=== PATIENT | male | born 1945 | race Caucasian/White ===

== ENCOUNTER → 2017-10-18 09:32 | Outpatient (CLI) | payer OTHER, SELFPAY | PROVIDERS: Family Provider Physician Assistant; PCP Physician Assistant; Visit Provider Internal Medicine | DX: M85.851 Other specified disorders of bone density and structure, right thigh (principal); Z79.52 Long term (current) use of systemic steroids | CPT/HCPCS: 77080 ==

== ENCOUNTER → 2018-03-28 11:39 | Outpatient (CLI) | payer OTHER, SELFPAY ==
[2018-03-28 13:17] LABS: BUN Creatinine Ratio 18.8 (6-22); Blood Urea Nitrogen 15 mg/dL (9-20); Estimated Glomerular Filt Rate > 60.0 mL/min (>60)
== END ==
PROVIDERS: Visit Provider Internal Medicine
DX: I26.99 Other pulmonary embolism without acute cor pulmonale (principal)
CPT/HCPCS: 36415; 82565; 84520

== ENCOUNTER → 2018-04-02 10:05 | Outpatient (CLI) | payer OTHER, SELFPAY ==
--- NOTE | 2018-04-02 | DI.CT.S_ITS ---
PROCEDURE: CT ANGIO CHEST PE PROTOCOL INDICATIONS: Other pulmonary embolism chest pains TECHNIQUE: After the administration of intravenous contrast, 2 mm thick sections acquired from the pulmonary apices to the posterior costophrenic angles. 3-dimensional maximum intensity projection (MIP) coronal and sagittal reformats were then acquired through the thorax. For radiation dose reduction, the following was used: automated exposure control, adjustment of mA and/or kV according to patient size. COMPARISON: [facility], CT, PE STUDY (CTA CHEST), 06/29/2017, 16:32. FINDINGS: Image quality: Excellent. Pulmonary arteries: Pulmonary arteries are normal in size, and demonstrate no intraluminal filling defects to suggest central pulmonary embolism. Lungs and pleura: Lungs are clear but appear mildly hyperexpanded. No pleural effusions or pneumothorax. Central and peripheral airways are patent. Mediastinum: Heart size is normal, without pericardial effusion. No mediastinal or hilar adenopathy. Thoracic aorta is normal in caliber and enhancement. Esophagus is normal in caliber, without hiatal hernia. Bones and chest wall: No suspicious bony lesions. Ribs and thoracic spine appear intact throughout. Thyroid gland appears normal weren't well visualized. No axillary or supraclavicular adenopathy. Abdomen: Visualized upper abdominal solid organs appear unchanged in the early arterial phase of enhancement, with stable appearance of a mild prominence of the anterior limb of the right adrenal gland as previously described. IMPRESSION: Resolution of previously present bilateral pulmonary emboli. No new abnormality found. Stable appearance of a mild prominence of the anterior limb of the right adrenal gland, stable appearance of pulmonary hyperexpansion potentially representing underlying COPD. Dictated by: Kostas Gil M.D. on 04/02/2018 at 10:50 Approved by: Kostas Gil M.D. on 04/02/2018 at 10:52
== END ==
PROVIDERS: PCP Internal Medicine; Visit Provider Internal Medicine
DX: I26.99 Other pulmonary embolism without acute cor pulmonale (principal); R07.9 Chest pain, unspecified
CPT/HCPCS: 71275; Q9967

== ENCOUNTER 2018-05-05 09:37 | Emergency (ER) | payer OTHER, SELFPAY ==
[2018-05-05 09:44] VITALS: BP 132/63; PULSE 91; RESP 18; TEMP 36.6; O2SAT 94
--- NOTE | 2018-05-05 09:51 | ED_ITS ---
HPI - URI/Sore Throat General Chief Complaint: Upper Respiratory Symptoms Stated Complaint: TROUBLE BREATHING X2 DAYS Time Seen by Provider: 05/05/18 09:44 Source: patient Mode of arrival: ambulatory Limitations: no limitations History of Present Illness HPI Narrative: Patient is a 72-year-old male with history of COPD on 3 different inhalers at home here for evaluation of a cough for the past 3 days. He also states that he feels short of breath. He has had a productive cough. No fevers. He has had a pulmonary embolism in the past. He states this feels different than his pulmonary embolism. He is not currently on anticoagulation. Does not use oxygen at home. Has been doing his inhalers. He states that last year he was diagnosed with ?pneumonia? after being diagnosed with the flu. He states that his shortness of breath feels more like ?bronchitis? and LEs like a COPD exacerbation. Related Data Home Medications Medication Instructions Recorded Confirmed albuterol sulfate [Ventolin HFA] 2 puff INH Q4HP PRN #0 ea 01/26/16 fluticasone-salmeterol [Advair 1 puff INH BID #28 dose 01/26/16 Diskus] lisinopril 20 mg PO QDAY #0 01/26/16 multivitamin [Multiple Vitamins] 1 tab PO QDAY #0 tab 01/26/16 tiotropium bromide [Spiriva with 1 puff INH QDAY #0 ea 01/26/16 HandiHaler] aspirin 81 mg PO QDAY #0 03/18/17 alprazolam 0.25 mg PO Q8HP PRN #0 06/29/17 fluticasone [Flonase Allergy 1 spray INTRANASAL QDAY #0 06/29/17 Relief] hydrochlorothiazide 25 mg PO QDAY #0 06/29/17 prednisone PO #0 06/29/17 sertraline 50 mg PO QDAY #30 06/29/17 Previous Rx's Medication Instructions Recorded Nebulizer: Home Unit u NEB QIDP PRN #1 05/31/17 albuterol sulfate 3 ml INH Q4HP PRN #30 applic 05/31/17 enoxaparin [Lovenox] 60 mg SQ 0600,1800 #5 u 07/02/17 warfarin [Coumadin] 4 mg PO QDAY #60 tab 07/02/17 levofloxacin [Levaquin] 750 mg PO DAILY 5 Days #5 tab 05/05/18 prednisone 60 mg PO DAILY 5 Days #15 tab 05/05/18 Allergies Allergy/AdvReac Type Severity Reaction Status Date / Time No Known Drug Allergies Allergy Verified 05/05/18 09:44 Review of Systems Constitutional Denies fever(s) Cardiovascular Denies chest pain and Reports dyspnea Respiratory Denies change in phlegm color, Reports cough, Reports excessive phlegm production, Reports pain with cough, Reports dyspnea, Denies stridor and Denies wheezing Gastrointestinal Gastrointestinal: Denies abdominal pain, Denies nausea and Denies vomiting Musculoskeletal Denies myalgias and Denies arthralgias Integumentary/Breasts Denies rash Hematologic/Lymphatic Denies easy bleeding and Denies easy bruising Allergic/Immunologic Denies wheezing PFSH Medical History COPD (chronic obstructive pulmonary disease) (Acute) Pulmonary embolism (Acute) Social History Smoking Status: Current every day smoker Exam Initial Vital Signs Initial Vital Signs: Vital Signs Temperature 97.9 F 05/05/18 09:44 Pulse Rate 91 H 05/05/18 09:44 Respiratory Rate 18 05/05/18 09:44 Blood Pressure 132/63 05/05/18 09:44 Pulse Oximetry 94 05/05/18 09:44 Const General: cooperative, comfortable, well developed, well groomed and No acute distress Orientation: alert, awake and oriented x3 HENMT Head: normal to inspection and normocephalic Resp Effort & Inspection: no audible wheezes, no cough, not labored, no retractions, no stridor and tachypneic Auscultation: other (Decreased breath sounds bilateral) Cardio Rate: regular rate Rhythm: regular rhythm Pulses: radial pulses present GI Inspection: non-distended Palpation: soft, No firm and No tender Skin Lesions: no lesions Rashes: no rashes Neuro General: alert, awake and oriented x3 Extrem General: normal to inspection and capillary refill normal Psych Appearance: grossly normal and well kempt Course Orders Ordered: ED Orders 05/05/18 09:51 XR chest 2V Stat 05/05/18 10:05 Influenza A and B by PCR Rapid Stat Vital Signs - 8 hr 05/05/18 09:44 Temperature 97.9 F Pulse Rate 91 H Respiratory Rate 18 Blood Pressure 132/63 Pulse Oximetry 94 MDM - URI/Sore Throat Lab Data Lab Results 05/05/18 Range/Units 10:05 Influenza A & B (PCR) Negative (Negative) Imaging Data Chest x-ray: Radiologist's impression: PROCEDURE: XR CHEST 2V INDICATIONS: COPD with cough TECHNIQUE: 2 views of the chest were acquired. COMPARISON: [facility], CHEST 1 VIEW, 06/29/2017, 12:29. [facility], CHEST 2 VIEW, 06/13/2017, 14:56. FINDINGS: Surgical changes and devices: None. Lungs and pleura: No pleural effusions or pneumothorax. Lungs are abnormal with prominent pulmonary hyperexpansion. 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 Heart size is normal. Bones and chest wall: No suspicious bony abnormalities. Soft tissues appear unremarkable. IMPRESSION: Severe COPD, central pulmonary artery hypertension is suspected based on the prominence of the central pulmonary arteries. No source of cough is found. Dictated by: Kostas Gil M.D. on 05/05/2018 at 10:19 MDM Narrative Medical decision making narrative: Patient is not in respiratory distress. He is not hypoxic. He did not want a nebulizer treatment here in the emergency department. He has had an increase in sputum production and more short of breath over the past couple days. Will consider this a COPD exacerbation. Will send home on antibiotics and steroids. He was given return precautions. He expressed understanding and agreement this plan. Discharge Plan Departure Patient Disposition: Home Clinical Impression: Acute exacerbation of chronic obstructive pulmonary disease (COPD) Instructions: DI for Chronic Obstructive Pulmonary Disease Activity Restrictions/Additional Instructions: Recommend that you take all of the medications as directed. Call your primary care doctor for a follow-up. Return to the emergency department for any new or worsening symptoms Prescriptions: New prednisone 20 mg tablet 60 mg PO DAILY 5 Days Qty: 15 RF: 0 levofloxacin [Levaquin] 750 mg tablet 750 mg PO DAILY 5 Days Qty: 5 RF: 0 No Action albuterol sulfate [Ventolin HFA] 90 MCG/PUFF HFA aerosol inhaler 2 puff INH Q4HP PRNQty: 0 RF: 0 multivitamin [Multiple Vitamins] 1 EACH tablet 1 tab PO QDAY Qty: 0 RF: 0 fluticasone-salmeterol [Advair Diskus] 250 MCG/50 MCG blister with device 1 puff INH BID Qty: 28 RF: 0 lisinopril 20 MG tablet 20 mg PO QDAY Qty: 0 RF: 0 tiotropium bromide [Spiriva with HandiHaler] 18 MCG capsule, w/inhalation device 1 puff INH QDAY Qty: 0 RF: 0 aspirin 81 MG tablet,delayed release (DR/EC) 81 mg PO QDAY Qty: 0 RF: 0 albuterol sulfate 2.5 MG/3 ML solution for nebulization 3 ml INH Q4HP PRNQty: 30 RF: 0 Nebulizer: Home Unit NEB QIDP PRNQty: 1 RF: 0 alprazolam 0.25 MG tablet 0.25 mg PO Q8HP PRNQty: 0 RF: 0 fluticasone [Flonase Allergy Relief] 9.9 ML spray,suspension 1 spray Intranasal QDAY Qty: 0 RF: 0 hydrochlorothiazide 25 MG tablet 25 mg PO QDAY Qty: 0 RF: 0 sertraline 25 MG tablet 50 mg PO QDAY Qty: 30 RF: 0 prednisone 10 MG tablet PO Qty: 0 RF: 0 warfarin [Coumadin] 2 MG tablet 4 mg PO QDAY Qty: 60 RF: 0 enoxaparin [Lovenox] 60 MG/0.6 ML syringe 60 mg SQ 0600,1800 Qty: 5 RF: 0
[2018-05-05 10:15] VITALS: BP 128/55; PULSE 78; RESP 19; O2SAT 94
--- NOTE | 2018-05-05 10:18 | PC.NURSE ---
reports, coughing for 3 days, hurts to cough, denies vomiting, with one time diarrhea today. smoker for years, quiet, restarted smoking 2ppd/along with alcohol.
--- NOTE | 2018-05-05 10:20 | PC.NURSE ---
pt alert and awake, oriented x3, responds appropriately, denies chest pain, shortness of breath, lightheaded. denies using oxygen at home. skin dusky all over.
[2018-05-05 10:30] VITALS: BP 108/57; PULSE 75; RESP 21; O2SAT 96
[2018-05-05 10:33] LABS: Influenza A and B by PCR Rapid Negative (Negative)
[2018-05-05 11:00] VITALS: BP 125/50; PULSE 86; RESP 19; O2SAT 97
== END 2018-05-05 11:27 | disposition home or self-care (01) ==
PROVIDERS: Emergency Provider Emergency Medicine; PCP Internal Medicine
DX: J44.1 Chronic obstructive pulmonary disease with (acute) exacerbation (principal)
CPT/HCPCS: 71046; 87400; 99283; 99284

== ENCOUNTER 2018-05-15 11:39 | Emergency (ER) | payer OTHER, SELFPAY ==
[2018-05-15 11:45] VITALS: BP 142/69; PULSE 74; RESP 16; TEMP 36.7; O2SAT 96; BMI 19.3
[2018-05-15 13:42] VITALS: BP 145/63; PULSE 67; RESP 20; TEMP 36.8; O2SAT 92
== END 2018-05-15 14:31 | disposition left against medical advice (07) ==
PROVIDERS: PCP Internal Medicine
DX: Z76.0 Encounter for issue of repeat prescription (principal)
CPT/HCPCS: 99281

== ENCOUNTER → 2019-02-08 06:59 | Outpatient (CLI) | payer OTHER, SELFPAY ==
--- NOTE | 2019-02-08 | DI.CT.S_ITS ---
PROCEDURE: CT CHEST W CON INDICATIONS: other pulmonary embolism without acute cor pulmona TECHNIQUE: After the administration of intravenous contrast, 5 mm thick sections acquired from the pulmonary apices to the posterior costophrenic angles. 1 mm axial lung, 5 mm thick coronal and sagittal reformats and 7 mm axial MIP were acquired. For radiation dose reduction, the following was used: automated exposure control, adjustment of mA and/or kV according to patient size. COMPARISON: [facility], CT, CT ANGIO CHEST PE PROTOCOL, 04/02/2018, 10:13. [facility], CR, XR CHEST 2V, 05/05/2018, 9:56. FINDINGS: Image quality: Excellent. Lungs and pleura: No acute consolidation. Scattered subsegmental atelectasis and/or scarring. No pleural effusion. No pneumothorax. Unchanged appearance of a 4 mm pulmonary nodules since 04/02/18, for example image 258 series 3 in the right lung base. Bilateral upper lobe predominant centrilobular emphysema Mediastinum: Heart size is normal. Coronary artery calcifications are present. No pericardial effusion. No mediastinal or hilar adenopathy by size criteria. There are eccentric nonobstructive filling defects seen within the right lower lobar and segmental pulmonary arteries which appear more conspicuous since the prior study keeping with chronic pulmonary embolism although suspected subacute on chronic disease. No central filling defects are seen. Esophagus is normal in caliber. No hiatal hernia. Bones and chest wall: No suspicious bony lesions. No vertebral body compression fractures. No axillary or supraclavicular adenopathy by size criteria. Thyroid gland negative. Abdomen: Bilateral renal cortical scarring and cysts which are grossly unchanged IMPRESSION: Redemonstration of chronic pulmonary embolism, however interval increase in the size of the eccentric filling defects suggests persistent/recurrent subacute on chronic disease. No acute consolidation. Upper lobe predominant centrilobular emphysema. Dictated by: Navin Bermudez M.D. on 02/08/2019 at 8:59 Approved by: Navin Bermudez M.D. on 02/08/2019 at 9:08
== END ==
PROVIDERS: PCP Internal Medicine; Visit Provider Internal Medicine
DX: I26.99 Other pulmonary embolism without acute cor pulmonale (principal); J43.2 Centrilobular emphysema
CPT/HCPCS: 71260; Q9967

== ENCOUNTER 2019-03-22 09:22 | Emergency (ER) | payer OTHER, SELFPAY ==
[2019-03-22 09:22] VITALS: BP 176/62; PULSE 74; RESP 18; TEMP 37.9; O2SAT 92
[2019-03-22] MEDS: ALBUTEROL/IPRATROPIUM 3 ML AMPUL INH (09:36)
--- NOTE | 2019-03-22 09:38 | DI.RAD.S_ITS ---
PROCEDURE: XR CHEST 2V INDICATIONS: cough, fever, SOB TECHNIQUE: 2 views of the chest were acquired. COMPARISON: [facility], CT, CT CHEST W CON, 02/08/2019, 8:24. [facility], CR, XR CHEST 2V, 05/05/2018, 9:56. FINDINGS: Surgical changes and devices: None. Lungs and pleura: Hyperinflation consistent with COPD. Trace pleural effusion or pleural thickening bilaterally. There is left basilar infiltrate. No pneumothorax. Mediastinum: Mediastinal contours are normal. Heart size is normal. Enlargement of central pulmonary outflow tract. Bones and chest wall: No suspicious bony abnormalities. Soft tissues appear unremarkable. IMPRESSION: 1. Left basilar infiltrate consistent with pneumonia. 2. Hyperinflation consistent with COPD. 3. Trace pleural effusions or pleural thickening. 4. Enlargement of central pulmonary outflow tract suggesting pulmonary hypertension. Dictated by: Isaac Damian M.D. on 03/22/2019 at 9:49 Approved by: Isaac Damian M.D. on 03/22/2019 at 9:55
[2019-03-22 09:43] VITALS: PULSE 73; RESP 20; O2SAT 95
--- NOTE | 2019-03-22 09:50 | ED_ITS ---
HPI - SOB/Dyspnea General Chief Complaint: Shortness of Breath/Dyspnea Stated Complaint: SHORTNESS OF BREATH STOMACH UPSET 2 DAYS Time Seen by Provider: 03/22/19 09:24 Source: patient Mode of arrival: Ambulatory Limitations: no limitations History of Present Illness HPI Narrative: 73-year-old male smoker presents with his in the chief complaint of increased work of breathing and use of bronchodilators over the past few days. He has had cough with yellowish productive sputum and subjective fever but nothing measured. Denies any sore throat or headache. He denies any chest pain, nausea or vomiting. His last hospitalization was many months ago. MD Complaint: shortness of breath and cough Onset (ago): day(s) Severity: moderate Consistency/Duration: constant Relieving factors: nothing Exacerbating factors: exertion Known history of: COPD Associated symptoms: fever, cough and sputum production Treatment prior to arrival: bronchodilator Related Data Home oxygen amount: none Home Medications Medication Instructions Recorded Confirmed albuterol sulfate [Ventolin HFA] 2 puff INH Q4HP PRN #0 ea 01/26/16 fluticasone propion-salmeterol 1 puff INH BID #28 dose 01/26/16 [Advair Diskus] lisinopril 20 mg PO QDAY #0 01/26/16 multivitamin [Multiple Vitamins] 1 tab PO QDAY #0 tab 01/26/16 tiotropium bromide [Spiriva with 1 puff INH QDAY #0 ea 01/26/16 HandiHaler] aspirin 81 mg PO QDAY #0 03/18/17 alprazolam 0.25 mg PO Q8HP PRN #0 06/29/17 fluticasone propionate [Flonase 1 spray INTRANASAL QDAY #0 06/29/17 Allergy Relief] hydrochlorothiazide 25 mg PO QDAY #0 06/29/17 prednisone PO #0 06/29/17 sertraline 50 mg PO QDAY #30 06/29/17 Previous Rx's Medication Instructions Recorded Nebulizer: Home Unit u NEB QIDP PRN #1 05/31/17 albuterol sulfate 3 ml INH Q4HP PRN #30 applic 05/31/17 enoxaparin [Lovenox] 60 mg SQ 0600,1800 #5 u 07/02/17 warfarin [Coumadin] 4 mg PO QDAY #60 tab 07/02/17 doxycycline monohydrate 100 mg PO BID 10 Days #20 cap 03/22/19 prednisone 20 mg PO DAILY #5 tab 03/22/19 Allergies Allergy/AdvReac Type Severity Reaction Status Date / Time No Known Drug Allergies Allergy Verified 03/22/19 09:34 Review of Systems Constitutional Constitutional: Reports chills, Denies fatigue, Denies fever(s), Denies frequent falls, Denies lethargy and Denies weakness Eyes Eyes: Denies change in vision, Denies eye discharge, Denies irritation and Denies loss of vision ENT Ears, Nose, Mouth, and Throat: Denies change in voice, Denies dizziness, Denies neck pain, Denies sore throat and Denies throat swelling Cardiovascular Cardiovascular: Denies chest pain, Denies irregular heart rhythm, Denies light headedness, Denies palpitations, Reports dyspnea, Denies dyspnea on exertion and Denies orthopnea Respiratory Respiratory: Reports change in phlegm color, Reports chest congestion, Reports cough, Reports dyspnea, Denies dyspnea on exertion and Denies wheezing Gastrointestinal Gastrointestinal: Denies abdominal pain, Denies change in bowel habits, Denies diarrhea, Denies nausea and Denies vomiting Genitourinary Genitourinary: Denies hematuria, Denies flank pain, Denies urinary incontinence and Denies urinary urgency Musculoskeletal Musculoskeletal: Denies back pain, Denies muscle weakness, Denies neck pain, Denies numbness and Denies tingling Integumentary/Breasts Skin/Breast: Denies pruritus, Denies erythema, Denies rash and Denies wounds Neurologic Neurologic: Denies behavioral changes, Denies confusion, Denies dizziness, Denies frequent falls, Denies loss of vision, Denies numbness, Denies tingling and Denies weakness Psychiatric Psychiatric: Denies anxiety, Denies behavioral changes, Denies confusion, Denies depression, Denies homicidal ideation and Denies suicidal ideation Endocrine Endocrine: Denies fatigue, Denies flushing and Denies palpitations Hematologic/Lymphatic Hematologic/Lymphatic: Denies easy bruising Allergic/Immunologic Allergic/Immunologic: Denies urticaria, Denies throat swelling and Denies wh eezing Patient History Medical History COPD (chronic obstructive pulmonary disease) (Acute) Pulmonary embolism (Acute) Social History (Reviewed 03/22/19 @ 18:36 by CHIARA Guillen Smoking Status: Current every day smoker Tobacco: How many years used: 3 alcohol intake frequency: 3 or more drinks per day Substance Use Type: does not use Exam Narrative Exam Narrative: GENERAL: [73] year old patient appears stated age. Well- nourished, well-developed patient, in mild distress. HEAD: Atraumatic. Normocephalic. EYES: Pupils equal round and reactive. Extraocular motions intact. No scleral icterus. No injection or drainage. ENT: Nose without bleeding, purulent drainage. Throat without erythema, tonsillar hypertrophy or exudate. Airway patent. NECK: Trachea midline. Non tender CARDIOVASCULAR: Regular rate and rhythm without murmurs, gallops, or rubs. RESPIRATORY: Decreased breath sounds bilaterally with prolonged expiratory pha se and bibasilar wheeze GASTROINTESTINAL: Abdomen soft, non-tender, nondistended. EXTREMITIES: No edema or joint tenderness. BACK: Nontender without deformity or crepitance. No flank tenderness. NEURO: AOx3. SKIN: No rash or erythema of visible areas Initial Vital Signs Initial Vital Signs: Vital Signs Temperature 100.3 F H 03/22/19 09:22 Pulse Rate 74 03/22/19 09:22 Respiratory Rate 18 03/22/19 09:22 Blood Pressure 176/62 H 03/22/19 09:22 Pulse Oximetry 92 03/22/19 09:22 Course Orders Ordered: ED Orders 03/22/19 09:37 Consult to Respiratory Therapy Evaluate & Treat EKG-12 Lead Stat 03/22/19 09:38 XR chest 2V Stat 03/22/19 10:00 B Type Natriuretic Peptide Stat Basic Metabolic Panel Stat Complete Blood Count AUTO DIFF Stat Lactate (Lactic Acid) Stat Magnesium Stat Procalcitonin Stat Troponin & CK Cardiac Panel Stat 03/22/19 10:18 Blood Culture Stat Discontinued Medications Albuterol/Ipratropium (Duoneb) 3 ml INH NOW ONE Stop: 03/22/19 09:37 Last Admin: 03/22/19 09:36 Dose: 3 ml Documented by: EHSAN Albuterol/Ipratropium (Duoneb) 3 ml INH NOW ONE Stop: 03/22/19 09:38 Sodium Chloride (Normal Saline 0.9%) 1,000 mls @ 1,000 mls/hr IV BOLUS ONE Stop: 03/22/19 10:36 Last Infusion: 03/22/19 11:32 Dose: 0 mls/hr Documented by: Admin: 03/22/19 10:09 Dose: 1,000 mls/hr Documented by: KAMI Ceftriaxone Sodium/Dextrose (Rocephin) 1 gm in 50 mls @ 100 mls/hr IV NOW ONE Stop: 03/22/19 10:06 Last Infusion: 03/22/19 10:40 Dose: 0 mls/hr Documented by: Admin: 03/22/19 10:09 Dose: 100 mls/hr Documented by: KAMI Methylprednisolone (Solu-Medrol 125 Mg Vial) 125 mg IV NOW ONE Stop: 03/22/19 09:38 Last Admin: 03/22/19 10:08 Dose: 125 mg Documented by: KMAI Vital Signs Vital signs: Vital Signs - 8 hr 03/22/19 11:01 03/22/19 12:13 Pulse Rate 66 73 Respiratory Rate 30 H 30 H Blood Pressure 132/48 L Blood Pressure [Left Arm] 139/49 L Pulse Oximetry 93 93 MDM - SOB/Dyspnea Lab Data Result diagrams: 03/22/19 10:00 03/22/19 10:00 Labs: Lab Results 03/22/19 03/22/19 03/22/19 Range/Units 10:00 10:00 10:00 WBC 11.8 H (4.5-11.0) X10^3/uL RBC 5.04 (4.5-5.9) X10^6/uL Hgb 16.5 (13.5-17.5) g/dL Hct 49.2 (41-53) % MCV 97.7 (80-100) fL MCH 32.7 (26-34) PG MCHC 33.5 (30-36) % RDW 13.2 (11.6-14.8) % Plt Count 301 (150-400) X10^3/uL Neut % (Auto) 76.4 H (50-75) % Lymph % (Auto) 10.5 L (25-40) % Real % (Auto) 12.4 (3-14) % Eos % (Auto) 0.1 L (2-4) % Baso % (Auto) 0.6 (0-2) % Neut # (Auto) 9000 H (1276-8170) /uL Lymph # (Auto) 1200 (9274-8606) /uL Real # (Auto) 1500 H (0-900) /uL Eos # (Auto) 0 (0-450) /uL Baso # (Auto) 100 (0-100) /uL Sodium 139 (137-145) mmol/L Potassium 4.8 (3.4-5.1) mmol/L Chloride 101 (98-107) mmol/L Carbon Dioxide 29 (22-32) mmol/L BUN 24 H (9-20) mg/dL Creatinine 0.90 (0.66-1.25) mg/dL Estimated GFR > 60.0 (>60) mL/min BUN/Creatinine Ratio 26.7 H (6-22) Glucose 110 (80-110) mg/dL Lactate (0.7-2.1) mmol/L Calcium 9.8 (8.4-10.2) mg/dL Magnesium 1.6 (1.6-2.3) mg/dL Total Creatine Kinase 103 (55-170) U/L CK-MB (CK-2) 2.93 H (<2.37) ng/mL CK-MB (CK-2) Rel Index 2.8 (1.5-5.0) % Troponin I < 0.012 (0.01-0.034) ng/mL B-Natriuretic Peptide < 100 (<100) Procalcitonin < 0.05 (<0.5) ng/mL 03/22/19 Range/Units 10:00 WBC (4.5-11.0) X10^3/uL RBC (4.5-5.9) X10^6/uL Hgb (13.5-17.5) g/dL Hct (41-53) % MCV (80-100) fL MCH (26-34) PG MCHC (30-36) % RDW (11.6-14.8) % Plt Count (150-400) X10^3/uL Neut % (Auto) (50-75) % Lymph % (Auto) (25-40) % Real % (Auto) (3-14) % Eos % (Auto) (2-4) % Baso % (Auto) (0-2) % Neut # (Auto) (1940-8460) /uL Lymph # (Auto) (4397-7561) /uL Real # (Auto) (0-900) /uL Eos # (Auto) (0-450) /uL Baso # (Auto) (0-100) /uL Sodium (137-145) mmol/L Potassium (3.4-5.1) mmol/L Chloride (98-107) mmol/L Carbon Dioxide (22-32) mmol/L BUN (9-20) mg/dL Creatinine (0.66-1.25) mg/dL Estimated GFR (>60) mL/min BUN/Creatinine Ratio (6-22) Glucose (80-110) mg/dL Lactate 1.6 (0.7-2.1) mmol/L Calcium (8.4-10.2) mg/dL Magnesium (1.6-2.3) mg/dL Total Creatine Kinase (55-170) U/L CK-MB (CK-2) (<2.37) ng/mL CK-MB (CK-2) Rel Index (1.5-5.0) % Troponin I (0.01-0.034) ng/mL B-Natriuretic Peptide (<100) Procalcitonin (<0.5) ng/mL Imaging Data Chest x-ray: Radiologist's impression: [address] [address] XRay Report Signed Patient: Aly Moore PMR#: [id number] : 5Acct:[id number] Age/Sex: 73 / MDate of Service: 03/22/19 Loc: ED Accession Number: [id number] Procedure: XR chest 2V Ordering Provider: Andrew Cisneros D.O. PROCEDURE: XR CHEST 2V INDICATIONS: cough, fever, SOB TECHNIQUE: 2 views of the chest were acquired. COMPARISON: [facility], CT, CT CHEST W CON, 02/08/2019, 8:24. [facility], CR, XR CHEST 2V, 05/05/2018, 9:56. FINDINGS: Surgical changes and devices: None. Lungs and pleura: Hyperinflation consistent with COPD. Trace pleural effusion or pleural thickening bilaterally. There is left basilar infiltrate. No pneumothorax. Mediastinum: Mediastinal contours are normal. Heart size is normal. Enlargement of central pulmonary outflow tract. Bones and chest wall: No suspicious bony abnormalities. Soft tissues appear unremarkable. IMPRESSION: 1. Left basilar infiltrate consistent with pneumonia. 2. Hyperinflation consistent with COPD. 3. Trace pleural effusions or pleural thickening. 4. Enlargement of central pulmonary outflow tract suggesting pulmonary hypertension. Dictated by: Isaac Damian M.D. on 03/22/2019 at 9:49 Approved by: Isaac Damian M.D. on 03/22/2019 at 9:55 [facility] Narrative Medical decision making narrative: 73M smoker with SOB and productive cough. Not hypoxic, no signs of sepsis. Improvement after bronchodilators. Single lobe pneumonia. Reassuring labs and exam. Return precautions given and questions answered to their apparent satisfaction Discharge Plan Departure Patient Disposition: Home Clinical Impression: COPD with exacerbation Pneumonia Qualifiers: Pneumonia type: due to unspecified organism Laterality: left Lung location: lower lobe of lung Qualified Code(s): J18.9 - Pneumonia, unspecified organism Discharge Date/Time: 03/22/19 12:13 Instructions: DI for Chronic Obstructive Pulmonary Disease, DI for Pneumonia -- Adult Activity Restrictions/Additional Instructions: *You have been diagnosed with [acute exacerbation of COPD and left lower lobe pneumonia] *What to do: *Take medications as directed *Follow up with your primary care provider in 2-3 days, call for an appointment. Let them know you were seen in the Emergency Department and that we ask that you be seen in follow up *Return to ER if you should have any new, worsening or concerning symptoms, such as [ ] Prescriptions: New prednisone 20 mg tablet 20 mg PO DAILY Qty: 5 RF: 0 doxycycline monohydrate 100 mg capsule 100 mg PO BID 10 Days Qty: 20 RF: 0 No Action albuterol sulfate [Ventolin HFA] 90 MCG/PUFF HFA aerosol inhaler 2 puff INH Q4HP PRNQty: 0 RF: 0 multivitamin [Multiple Vitamins] 1 EACH tablet 1 tab PO QDAY Qty: 0 RF: 0 fluticasone propion-salmeterol [Advair Diskus] 250 MCG/50 MCG blister with device 1 puff INH BID Qty: 28 RF: 0 lisinopril 20 MG tablet 20 mg PO QDAY Qty: 0 RF: 0 tiotropium bromide [Spiriva with HandiHaler] 18 MCG capsule, w/inhalation device 1 puff INH QDAY Qty: 0 RF: 0 aspirin 81 MG tablet,delayed release (DR/EC) 81 mg PO QDAY Qty: 0 RF: 0 albuterol sulfate 2.5 MG/3 ML solution for nebulization 3 ml INH Q4HP PRNQty: 30 RF: 0 Nebulizer: Home Unit NEB QIDP PRNQty: 1 RF: 0 alprazolam 0.25 MG tablet 0.25 mg PO Q8HP PRNQty: 0 RF: 0 fluticasone propionate [Flonase Allergy Relief] 9.9 ML spray,suspension 1 spray Intranasal QDAY Qty: 0 RF: 0 hydrochlorothiazide 25 MG tablet 25 mg PO QDAY Qty: 0 RF: 0 sertraline 25 MG tablet 50 mg PO QDAY Qty: 30 RF: 0 prednisone 10 MG tablet PO Qty: 0 RF: 0 warfarin [Coumadin] 2 MG tablet 4 mg PO QDAY Qty: 60 RF: 0 enoxaparin [Lovenox] 60 MG/0.6 ML syringe 60 mg SQ 0600,1800 Qty: 5 RF: 0 Referrals: Porfirio Valdes MD [Primary Care Provider] -
[2019-03-22] MEDS: methylPREDNISolone 125 MG/2 ML VIAL IV (10:08)
[2019-03-22] MEDS: SODIUM CHLORIDE 0.9% 1,000 ML 1000 ML IV (10:09)
[2019-03-22] MEDS: CEFTRIAXONE 1 GM/50 ML FROZ.PIGGY IV (10:09)
[2019-03-22 10:17] LABS: Add Manual Diff / Slide Review NO; Basophils Absolute Auto 100 /uL (0-100); Basophils Percent Auto 0.6 % (0-2); Eosinophils Absolute Auto 0 /uL (0-450); Eosinophils Percent Auto 0.1 % (2-4); Hematocrit 49.2 % (41-53); Hemoglobin 16.5 g/dL (13.5-17.5); Lymphocytes Absolute Auto 1200 /uL (1100-4500); Lymphocytes Percent Auto 10.5 % (25-40); Mean Corpuscular HGB Conc 33.5 % (30-36); Mean Corpuscular Hemoglobin 32.7 PG (26-34); Mean Corpuscular Volume 97.7 fL (80-100); Monocytes Absolute Auto 1500 /uL (0-900); Monocytes Percent Auto 12.4 % (3-14); Neutrophils Absolute Auto 9000 /uL (1500-7000); Neutrophils Percent Auto 76.4 % (50-75); Platelet Count 301 X10^3/uL (150-400); Red Blood Cell Count 5.04 X10^6/uL (4.5-5.9); Red Cell Distribution Width 13.2 % (11.6-14.8); White Blood Cell Count 11.8 X10^3/uL (4.5-11.0)
[2019-03-22 10:22] LABS: BUN Creatinine Ratio 26.7 (6-22); Blood Urea Nitrogen 24 mg/dL (9-20); Calcium 9.8 mg/dL (8.4-10.2); Carbon Dioxide 29 mmol/L (22-32); Chloride 101 mmol/L (98-107); Creatine Kinase 103 U/L (55-170); Estimated Glomerular Filt Rate > 60.0 mL/min (>60); Glucose 110 mg/dL (80-110); HEMOLYSIS 19 (0-50); Lactate (Lactic Acid) 1.6 mmol/L (0.7-2.1); Magnesium 1.6 mg/dL (1.6-2.3); Potassium 4.8 mmol/L (3.4-5.1); Sodium 139 mmol/L (137-145)
[2019-03-22 10:34] LABS: Troponin I < 0.012 ng/mL (0.01-0.034)
[2019-03-22 10:37] LABS: CKMB % Relative Index 2.8 % (1.5-5.0); Creatine Kinase MB 2.93 ng/mL (<2.37)
[2019-03-22 10:38] LABS: B Type Natriuretic Peptide < 100 (<100)
[2019-03-22 10:40] LABS: Procalcitonin < 0.05 ng/mL (<0.5)
[2019-03-22 11:01] VITALS: BP 139/49; PULSE 66; RESP 30; O2SAT 93
[2019-03-22 12:13] VITALS: BP 132/48; PULSE 73; RESP 30; O2SAT 93
== END 2019-03-22 12:13 | disposition home or self-care (01) ==
PROVIDERS: Emergency Provider Emergency Medicine; PCP Internal Medicine
DX: J44.1 Chronic obstructive pulmonary disease with (acute) exacerbation (principal); J18.9 Pneumonia, unspecified organism
CPT/HCPCS: 36415; 71046; 80048; 82550; 82553; 83605; 83735; 83880; 84145; 84484; 85025; 87040; 93005; 94640; 96361; 96365; 96375; 99283; 99285; J2930

== ENCOUNTER → 2019-10-28 08:56 | Outpatient (CLI) | payer OTHER, SELFPAY ==
--- NOTE | 2019-10-28 | DI.RAD.S_ITS ---
PROCEDURE: XR CHEST 2V INDICATIONS: Chronic obstructive pulmonary disease, unspecified TECHNIQUE: 2 views of the chest were acquired. COMPARISON: [facility], CR, XR CHEST 2V, 03/22/2019, 9:38. FINDINGS: Surgical changes and devices: None. Lungs and pleura: The lungs are hyperexpanded with flattened hemidiaphragms and increased retrosternal airspace. No focal consolidation. Previously seen infiltrate in the left lung base has resolved. There is no pleural effusion or pneumothorax. Mediastinum: Mediastinal contours are normal. Heart size is normal. Bones and chest wall: No suspicious bony abnormalities. Soft tissues appear unremarkable. IMPRESSION: Findings of COPD with no acute cardiac pulmonary process demonstrated. Previously seen left basilar infiltrate has resolved. Dictated by: Antwon Restrepo M.D. on 10/28/2019 at 9:18 Approved by: Antwon Restrepo M.D. on 10/28/2019 at 9:23
== END ==
PROVIDERS: PCP Internal Medicine; Referring Provider Internal Medicine; Visit Provider Internal Medicine
DX: J44.9 Chronic obstructive pulmonary disease, unspecified (principal)
CPT/HCPCS: 71046; 87070; 87205

== ENCOUNTER → 2020-04-20 18:40 | Outpatient (ROUT) | payer OTHER, SELFPAY ==
[2020-04-20 18:59] LABS: Add Manual Diff / Slide Review NO; Basophils Absolute Auto 0 /uL (0-100); Basophils Percent Auto 0.6 % (0-2); Eosinophils Absolute Auto 100 /uL (0-450); Eosinophils Percent Auto 1.8 % (2-4); Hemoglobin 14.2 g/dL (13.5-17.5); Lymphocytes Absolute Auto 1800 /uL (1100-4500); Lymphocytes Percent Auto 24.3 % (25-40); Mean Corpuscular Hemoglobin 31.5 PG (26-34); Mean Corpuscular Volume 95.5 fL (80-100); Monocytes Absolute Auto 900 /uL (0-900); Neutrophils Absolute Auto 4500 /uL (1500-7000); Neutrophils Percent Auto 61.3 % (50-75); Platelet Count 294 X10^3/uL (150-400); Red Blood Cell Count 4.51 X10^6/uL (4.5-5.9); Red Cell Distribution Width 13.1 % (11.6-14.8); White Blood Cell Count 7.4 X10^3/uL (4.5-11.0)
[2020-04-20 19:21] LABS: Aspartate Aminotransferase 33 IU/L (17-59); BUN Creatinine Ratio 32.2 (6-22); Blood Urea Nitrogen 38 mg/dL (9-20); Calcium 9.4 mg/dL (8.4-10.2); Carbon Dioxide 32 mmol/L (22-32); Chloride 103 mmol/L (98-107); Cholesterol 161 mg/dL (140-199); Estimated Glomerular Filt Rate > 60.0 mL/min (>60); Glucose 111 mg/dL (80-110); HDL Cholesterol 100 mg/dL (40-60); HEMOLYSIS < 15 (0-50); LDL Cholesterol Calculated 50 mg/dL (<100); Potassium 4.8 mmol/L (3.4-5.1); Sodium 136 mmol/L (137-145); Triglycerides 57 mg/dL (35-150)
== END ==
PROVIDERS: PCP Internal Medicine; Visit Provider Internal Medicine
DX: I26.99 Other pulmonary embolism without acute cor pulmonale (principal); E78.2 Mixed hyperlipidemia; I10 Essential (primary) hypertension
CPT/HCPCS: 80048; 80061; 84450; 85025

== ENCOUNTER 2020-12-10 18:49 | Observation (INO) | payer OTHER, SELFPAY ==
[2020-12-10] VITALS (10 sets, daily range): BP systolic 111–157; BP diastolic 53–68; PULSE 67–99; RESP 14–39; TEMP 36.4–38.3; O2SAT 86–96; BMI 18.8
--- NOTE | 2020-12-10 19:19 | DI.RAD.S_ITS ---
PROCEDURE: XR CHEST 1V INDICATIONS: COPD, fever SOB TECHNIQUE: One view of the chest was acquired. COMPARISON: [facility], CR, XR CHEST 2V, 10/28/2019, 8:59. [facility], CR, XR CHEST 2V, 03/22/2019, 9:38. FINDINGS: Surgical changes and devices: None. Lungs and pleura: Lungs are abnormal, with pulmonary hyperexpansion. No pleural effusions or pneumothorax. Mediastinum: Mediastinal contours appear normal. Heart size is normal. Bones and chest wall: No suspicious bony lesions. Overlying soft tissues appear unremarkable. IMPRESSION: COPD, no pneumonia found. Dictated by: Kostas Gil M.D. on 12/10/2020 at 19:46 Approved by: Kostas Gil M.D. on 12/10/2020 at 19:47
[2020-12-10 19:21] LABS: Add Manual Diff / Slide Review NO; Basophils Absolute Auto 100 /uL (0-100); Basophils Percent Auto 1.4 % (0-2); Eosinophils Absolute Auto 200 /uL (0-450); Eosinophils Percent Auto 1.8 % (2-4); Hematocrit 45.4 % (41-53); Hemoglobin 15.2 g/dL (13.5-17.5); Lactate (Lactic Acid) 1.6 mmol/L (0.7-2.1); Lymphocytes Absolute Auto 1600 /uL (1100-4500); Lymphocytes Percent Auto 18.5 % (25-40); Mean Corpuscular HGB Conc 33.4 % (30-36); Mean Corpuscular Hemoglobin 31.9 PG (26-34); Mean Corpuscular Volume 95.3 fL (80-100); Monocytes Absolute Auto 1500 /uL (0-900); Neutrophils Absolute Auto 5200 /uL (1500-7000); Neutrophils Percent Auto 61.3 % (50-75); Platelet Count 277 X10^3/uL (150-400); Red Blood Cell Count 4.76 X10^6/uL (4.5-5.9); Red Cell Distribution Width 12.8 % (11.6-14.8); White Blood Cell Count 8.6 X10^3/uL (4.5-11.0)
[2020-12-10 19:22] LABS: Alanine Aminotransferase 26 IU/L (<50); Albumin 4.1 g/dL (3.5-5.0); Albumin Globulin Ratio 1.5 (1.0-2.8); Alkaline Phosphatase 71 U/L (38-126); Aspartate Aminotransferase 33 IU/L (17-59); BUN Creatinine Ratio 23.7 (6-22); Bilirubin Total 0.4 mg/dL (0.2-1.3); Blood Urea Nitrogen 33 mg/dL (9-20); Calcium 10.1 mg/dL (8.4-10.2); Carbon Dioxide 27 mmol/L (22-32); Chloride 101 mmol/L (98-107); Estimated Glomerular Filt Rate 49.7 mL/min (>60); Globulin 2.8 g/dL (1.7-4.1); Glucose 115 mg/dL (80-110); HEMOLYSIS < 15 (0-50); Potassium 4.9 mmol/L (3.4-5.1); Sodium 136 mmol/L (137-145); Total Protein 6.9 g/dL (6.3-8.2)
[2020-12-10 19:45] LABS: Creatine Kinase 236 U/L (55-170)
--- NOTE | 2020-12-10 19:48 | ED.GENADULT ---
HPI - General Adult General Chief complaint: Shortness of Breath/Dyspnea Stated complaint: DIFFICULTY BREATHING, copd FLARE Time Seen by Provider: 12/10/20 19:18 Source: patient Mode of arrival: Ambulatory Limitations: no limitations History of Present Illness HPI narrative: Patient is a 75-year-old male who arrives to the emergency department for evaluation of shortness of breath. He has a history of COPD. Does not use home oxygen on a regular basis. States that for the past several weeks and especially over the past couple days he has had increasing shortness of breath specifically shortness of breath with exertion. No chest pain. He has been coughing. He does not know whether not the coughing has been more than normal however it has changed colors. No fevers. He tried an albuterol nebulizer yesterday but he states that it did not help his symptoms so has not tried anything since then. He has been using his inhalers as directed. He is on warfarin. He has had a pulmonary embolism the past for this is been many years ago. He states that he is taking it as directed. Has not had his INR checked in some time. He states that he was told that he does not needed checked often because he is on a stable dose of the medication. Related Data Home Medications Medication Instructions Recorded Confirmed albuterol sulfate 90 mcg/actuation 2 puff INH Q4HP PRN #0 ea 01/26/16 12/11/20 aerosol inhaler (Ventolin HFA) lisinopril 20 mg tablet 20 mg PO QDAY #0 01/26/16 12/11/20 multivitamin (Multiple Vitamins) 1 tab PO QDAY #0 tab 01/26/16 12/11/20 hydrochlorothiazide 25 mg tablet 12.5 mg PO QDAY #0 06/29/17 12/11/20 albuterol sulfate 3 ml INH Q4HP PRN 12/11/20 12/11/20 bupropion HCl 150 mg 24 hr tablet, 150 mg PO QAM 12/11/20 12/11/20 extended release omeprazole 20 mg capsule,delayed 20 mg PO DAILY PRN 12/11/20 12/11/20 release warfarin 2 mg tablet 5 mg PO QDAY 12/11/20 12/11/20 Allergies Allergy/AdvReac Type Severity Reaction Status Date / Time No Known Drug Allergies Allergy Verified 09/20/20 13:59 Review of Systems Constitutional Constitutional: Denies fever(s) ENT Ears, Nose, Mouth, and Throat: Reports system reviewed and no additional complaints, except as documented Cardiovascular Comments: No chest pain Respiratory Respiratory: Reports as per HPI Gastrointestinal Comments: No abdominal pain nausea vomiting Genitourinary Genitourinary: Reports system reviewed and no additional complaints, except as documented Musculoskeletal Musculoskeletal: Reports system reviewed and no additional complaints, except as documented Integumentary/Breasts Skin/Breast: Denies rash Neurologic Neurologic: Reports system reviewed and no additional complaints, except as documented Hematologic/Lymphatic On Anticoagulants: Yes Allergic/Immunologic Allergic/Immunologic: Reports system reviewed and no additional complaints, except as documented Patient History Medical History Anticoagulated on warfarin COPD (chronic obstructive pulmonary disease) Essential hypertension Hx pulmonary embolism Hyperlipemia Pulmonary embolism Surgical History History of partial surgical removal of colon Hx of inguinal hernia repair Family History Mother Lung cancer Father Brain cancer Social History household members: spouse Smoking Status: Former smoker Tobacco: How many years used: 3 alcohol intake: former Smoking Status: Current every day smoker alcohol intake frequency: 3 or more drinks per day Substance Use Type: does not use Exam Initial Vital Signs Initial Vital Signs: Vital Signs Temperature 101 F H 12/10/20 19:05 Pulse Rate 71 12/10/20 19:05 Respiratory Rate 28 H 12/10/20 19:05 Blood Pressure 124/56 L 12/10/20 19:05 Pulse Oximetry 86 L 12/10/20 19:05 Const General: cooperative HENMT Head: normal to inspection and normocephalic Eyes General: appearance normal, both eyes and all related structures Chest Chest: normal inspection of the chest Resp Effort & Inspection: labored and tachypneic Auscultation: clear to auscultation bilaterally and diminished lung sounds Cardio Rate: regular rate Rhythm: regular rhythm GI Inspection: normal to inspection Palpation: soft Skin General: no rashes or lesions noted Neuro General: patient alert, patient awake, patient oriented x3 and moves all extremities Extrem General: normal to inspection, capillary refill normal and No edema Psych Appearance: grossly normal and well kempt Course Orders Ordered: ED Orders 12/10/20 19:00 Complete Blood Count AUTO DIFF Stat Comprehensive Metabolic Panel Stat Lactate (Lactic Acid) Stat NT-proBNP (BNP-Adult 18+) Stat Partial Thromboplastin Time Stat Procalcitonin Stat Prothrombin Time INR Stat Troponin & CK Cardiac Panel Stat 12/10/20 19:04 EKG-12 Lead Stat Measure peak expiratory flow ONCE RT Consult Eval and Treat Now 12/10/20 19:06 COVID19 -Nasal swab/Pre-Proc Stat 12/10/20 19:19 XR chest 1V Stat 12/10/20 19:50 CT angio chest PE protocol Stat Acetaminophen (Acetaminophen 325 Mg Tablet) 650 mg PO Q6HR PRN PRN Reason: Fever/Mild Pain (1-3) Albuterol (Albuterol 2.5 Mg/3 Ml Neb (Adult)) 2.5 mg INH [id number] OPAL Azithromycin (Azithromycin 250 Mg Tablet) 500 mg PO BEDTIME OPAL Budesonide (Budesonide 0.5 Mg/2 Ml Neb) 0.5 mg INH RTBID OPAL Heparin Sodium (Porcine) (Heparin 5,000 Unit/Ml Vial) 5,000 unit SUBCUT BID [facility] Last Admin: 12/11/20 00:46 Dose: Not Given Documented by: ANDREINA Sodium Chloride (Normal Saline 0.9%) 1,000 mls @ 100 mls/hr IV CONT [facility] Last Admin: 12/11/20 00:46 Dose: 100 mls/hr Documented by: ANDREINA Ipratropium [place] (Ipratropium 0.5 Mg/2.5 Ml Neb) 0.5 mg INH RTQ6HR PRN PRN Reason: Shortness Of Breath Or Wheezing Melatonin (Melatonin 3 Mg Tablet) 6 mg PO BEDTIME [facility] Last Admin: 12/11/20 00:46 Dose: 6 mg Documented by: ANDREINA Naloxone HCl (Naloxone 0.4 Mg/Ml Vial) 0.2 mg IV Q2MIN PRN PRN Reason: Opiate Reversal Ondansetron HCl (Ondansetron 4 Mg/2 Ml Inj) 4 mg IV Q8HR PRN PRN Reason: Nausea And Vomiting Discontinued Medications Albuterol/Ipratropium (Albuterol/Ipratropium 3 Ml Ampul) 3 ml INH Q20M [facility] Stop: 12/10/20 20:41 Last Admin: 12/10/20 20:42 Dose: 3 ml Documented by: Admin: 12/10/20 20:20 Dose: 3 ml Documented by: Admin: 12/10/20 20:18 Dose: 3 ml Documented by: EHSAN Azithromycin (Azithromycin 250 Mg Tablet) 500 mg PO DAILY [facility] Azithromycin 500 mg/ Dextrose 250 mls @ 250 mls/hr IV NOW ONE Stop: 12/10/20 19:50 Last Infusion: 12/10/20 21:32 Dose: 0 mls/hr Documented by: Admin: 12/10/20 20:23 Dose: 250 mls/hr Documented by: VALERIY Methylprednisolone (Methylprednisolone 125 Mg/2 Ml Vial) 125 mg IV NOW ONE Stop: 12/10/20 19:50 Last Admin: 12/10/20 20:23 Dose: 125 mg Documented by: VALERIY Vital Signs Vital signs: Vital Signs - 8 hr 12/10/20 19:05 12/10/20 19:49 12/10/20 20:18 Temperature 101 F H 98.6 F Pulse Rate 71 82 Respiratory Rate 28 H 14 Blood Pressure 124/56 L Pulse Oximetry 96 96 12/10/20 20:44 12/10/20 21:36 12/10/20 21:37 Temperature Pulse Rate 95 H 83 77 Respiratory Rate 14 39 H Blood Pressure 157/67 H Pulse Oximetry 95 91 95 12/10/20 21:46 Temperature Pulse Rate 99 H Respiratory Rate 28 H Blood Pressure Pulse Oximetry 86 L Medical Decision Making Medical Records Medical records reviewed: Yes I reviewed the patient's medical records. Lab Data Lab results reviewed: Yes I reviewed the patient's lab results. Result diagrams: 12/10/20 19:00 12/10/20 19:00 Labs: Lab Results 12/10/20 12/10/20 12/10/20 Range/Units 19:00 19:00 19:00 WBC 8.6 (4.5-11.0) X10^3/uL RBC 4.76 (4.5-5.9) X10^6/uL Hgb 15.2 (13.5-17.5) g/dL Hct 45.4 (41-53) % MCV 95.3 (80-100) fL MCH 31.9 (26-34) PG MCHC 33.4 (30-36) % RDW 12.8 (11.6-14.8) % Plt Count 277 (150-400) X10^3/uL Neut % (Auto) 61.3 (50-75) % Lymph % (Auto) 18.5 L (25-40) % Randall % (Auto) 17.0 H (3-14) % Eos % (Auto) 1.8 L (2-4) % Baso % (Auto) 1.4 (0-2) % Neut # (Auto) 5200 (6301-1530) /uL Lymph # (Auto) 1600 (8699-3136) /uL Randall # (Auto) 1500 H (0-900) /uL Eos # (Auto) 200 (0-450) /uL Baso # (Auto) 100 (0-100) /uL PT (10.1-12.7) SECONDS INR (0.9-1.3) APTT (26.4-36.2) SECONDS Sodium 136 L (137-145) mmol/L Potassium 4.9 (3.4-5.1) mmol/L Chloride 101 (98-107) mmol/L Carbon Dioxide 27 (22-32) mmol/L BUN 33 H (9-20) mg/dL Creatinine 1.39 H (0.66-1.25) mg/dL Estimated GFR 49.7 L (>60) mL/min BUN/Creatinine Ratio 23.7 H (6-22) Glucose 115 H (80-110) mg/dL Lactate 1.6 (0.7-2.1) mmol/L Calcium 10.1 (8.4-10.2) mg/dL Total Bilirubin 0.4 (0.2-1.3) mg/dL AST 33 (17-59) IU/L ALT 26 (<50) IU/L Alkaline Phosphatase 71 (38-126) U/L Total Creatine Kinase (55-170) U/L CK-MB (CK-2) (<2.37) ng/mL CK-MB (CK-2) Rel Index (1.5-5.0) % Troponin I (0.01-0.034) ng/mL NT-Pro-B Natriuret Pep (<450) pg/mL Total Protein 6.9 (6.3-8.2) g/dL Albumin 4.1 (3.5-5.0) g/dL Globulin 2.8 (1.7-4.1) g/dL Albumin/Globulin Ratio 1.5 (1.0-2.8) Procalcitonin (<0.5) ng/mL SARS-CoV-2 (PCR) (Negative) 12/10/20 12/10/20 12/10/20 Range/Units 19:00 19:00 19:00 WBC (4.5-11.0) X10^3/uL RBC (4.5-5.9) X10^6/uL Hgb (13.5-17.5) g/dL Hct (41-53) % MCV (80-100) fL MCH (26-34) PG MCHC (30-36) % RDW (11.6-14.8) % Plt Count (150-400) X10^3/uL Neut % (Auto) (50-75) % Lymph % (Auto) (25-40) % Randall % (Auto) (3-14) % Eos % (Auto) (2-4) % Baso % (Auto) (0-2) % Neut # (Auto) (1490-4171) /uL Lymph # (Auto) (7612-5047) /uL Randall # (Auto) (0-900) /uL Eos # (Auto) (0-450) /uL Baso # (Auto) (0-100) /uL PT 14.6 H (10.1-12.7) SECONDS INR 1.3 (0.9-1.3) APTT 34 (26.4-36.2) SECONDS Sodium (137-145) mmol/L Potassium (3.4-5.1) mmol/L Chloride (98-107) mmol/L Carbon Dioxide (22-32) mmol/L BUN (9-20) mg/dL Creatinine (0.66-1.25) mg/dL Estimated GFR (>60) mL/min BUN/Creatinine Ratio (6-22) Glucose (80-110) mg/dL Lactate (0.7-2.1) mmol/L Calcium (8.4-10.2) mg/dL Total Bilirubin (0.2-1.3) mg/dL AST (17-59) IU/L ALT (<50) IU/L Alkaline Phosphatase (38-126) U/L Total Creatine Kinase 236 H (55-170) U/L CK-MB (CK-2) 4.30 H (<2.37) ng/mL CK-MB (CK-2) Rel Index 1.8 (1.5-5.0) % Troponin I < 0.012 (0.01-0.034) ng/mL NT-Pro-B Natriuret Pep 323 (<450) pg/mL Total Protein (6.3-8.2) g/dL Albumin (3.5-5.0) g/dL Globulin (1.7-4.1) g/dL Albumin/Globulin Ratio (1.0-2.8) Procalcitonin 0.13 (<0.5) ng/mL SARS-CoV-2 (PCR) (Negative) 12/10/20 Range/Units 19:06 WBC (4.5-11.0) X10^3/uL RBC (4.5-5.9) X10^6/uL Hgb (13.5-17.5) g/dL Hct (41-53) % MCV (80-100) fL MCH (26-34) PG MCHC (30-36) % RDW (11.6-14.8) % Plt Count (150-400) X10^3/uL Neut % (Auto) (50-75) % Lymph % (Auto) (25-40) % Randall % (Auto) (3-14) % Eos % (Auto) (2-4) % Baso % (Auto) (0-2) % Neut # (Auto) (6577-5438) /uL Lymph # (Auto) (4772-3852) /uL Randall # (Auto) (0-900) /uL Eos # (Auto) (0-450) /uL Baso # (Auto) (0-100) /uL PT (10.1-12.7) SECONDS INR (0.9-1.3) APTT (26.4-36.2) SECONDS Sodium (137-145) mmol/L Potassium (3.4-5.1) mmol/L Chloride (98-107) mmol/L Carbon Dioxide (22-32) mmol/L BUN (9-20) mg/dL Creatinine (0.66-1.25) mg/dL Estimated GFR (>60) mL/min BUN/Creatinine Ratio (6-22) Glucose (80-110) mg/dL Lactate (0.7-2.1) mmol/L Calcium (8.4-10.2) mg/dL Total Bilirubin (0.2-1.3) mg/dL AST (17-59) IU/L ALT (<50) IU/L Alkaline Phosphatase (38-126) U/L Total Creatine Kinase (55-170) U/L CK-MB (CK-2) (<2.37) ng/mL CK-MB (CK-2) Rel Index (1.5-5.0) % Troponin I (0.01-0.034) ng/mL NT-Pro-B Natriuret Pep (<450) pg/mL Total Protein (6.3-8.2) g/dL Albumin (3.5-5.0) g/dL Globulin (1.7-4.1) g/dL Albumin/Globulin Ratio (1.0-2.8) Procalcitonin (<0.5) ng/mL SARS-CoV-2 (PCR) Negative (Negative) Imaging Data Chest x-ray: Radiologist's Impression: [address] [id number] ReportSigned Patient: Aly Moore PMR#: [id number]: 5Acct:[id number]/Sex: 75 / MDate of Service: 12/10/20Loc: EDAccession Number: [id number] Procedure: XR chest 1V Ordering Provider: Froylan Diaz D.O. PROCEDURE: XR CHEST 1V INDICATIONS: COPD, fever SOB TECHNIQUE: One view of the chest was acquired. COMPARISON: [facility], CR, XR CHEST 2V, 10/28/2019, 8:59. [facility], , XR CHEST 2V, 03/22/2019, 9:38. FINDINGS: Surgical changes and devices: None. Lungs and pleura: Lungs are abnormal, with pulmonary hyperexpansion. No pleural effusions or pneumothorax. Mediastinum: Mediastinal contours appear normal. Heart size is normal. Bones and chest wall: No suspicious bony lesions. Overlying soft tissues appear unremarkable. IMPRESSION: COPD, no pneumonia found. Dictated by: Kostas Gil M.D. on 12/10/2020 at 19:46 Approved by: Kostas Gil M.D. on 12/10/2020 at 19:47 CT scan - chest: Radiologist's Impression: [address] [id number] Scan ReportSigned Patient: Aly Moore PMR#: [id number]: 5Acct:[id number]/Sex: 75 / MDate of Service: 12/10/20Loc: EDAccession Number: [id number] Procedure: CT angio chest PE protocol Ordering Provider: Froylan Diaz D.O. PROCEDURE: CT ANGIO CHEST PE PROTOCOL INDICATIONS: Chest pain, shortness of breath, tachycardia TECHNIQUE: After the administration of intravenous contrast, 2 mm thick sections acquired from the pulmonary apices to the posterior costophrenic angles. 3-dimensional maximum intensity projection (MIP) coronal and sagittal reformats were then acquired through the thorax. For radiation dose reduction, the following was used: automated exposure control, adjustment of mA and/or kV according to patient size. COMPARISON: None. FINDINGS: Image quality: Excellent. Pulmonary arteries: Pulmonary arteries are normal in size, and demonstrate no intraluminal filling defects to suggest central pulmonary embolism. Lungs and pleura: Lungs are abnormal with severe pulmonary hyperexpansion and centrilobular emphysema.. No pleural effusions or pneumothorax. Central and peripheral airways are patent. Mediastinum: Heart size is normal, without pericardial effusion. No mediastinal or hilar adenopathy. Thoracic aorta is normal in caliber and enhancement. Esophagus is normal in caliber, without hiatal hernia. Bones and chest wall: No suspicious bony lesions. Ribs and thoracic spine appear intact throughout. Thyroid gland is not well seen. No axillary or supraclavicular adenopathy. Abdomen: Visualized upper abdominal solid organs appear normal in the early arterial phase of enhancement. IMPRESSION: Severe COPD, no pulmonary embolus found. Dictated by: Kostas Gil M.D. on 12/10/2020 at 20:34 Approved by: Kostas Gil M.D. on 12/10/2020 at 20:35 ECG Data Attestation: I personally reviewed and interpreted this ECG as follows: Interpretation: Sinus rhythm Ventricular rate is 71 Normal axis Normal QRS Normal QTC No ST T wave changes MDM Narrative Medical decision making narrative: Patient arrived hypoxic and this improved by oxygen by nasal cannula. He did have clear lungs bilateral but it has been diminished. He did report some improvement in symptoms after nebulizer treatments. He was given steroids. Also given antibiotics. His chest x-ray shows COPD but no signs of pneumonia. Given his subtherapeutic level of Coumadin today, his history of pulmonary embolism, his clear lung exam today, the CT scan was ordered for evaluation of potential PE. This was subsequently negative. We were able to wean the patient off of oxygen and he did maintain saturations above 90% while lying in bed but when he got up to walk around he desatted to the mid 80s. This improved with oxygen and rest. Given his hypoxia patient will need admitted for further evaluation. I did discuss this with him and he expressed understanding. Discussed the case with clementina shane the [facility] provider who will admit for further evaluation and treatment. Discharge Plan Departure Patient Disposition: Admitted as Observation Clinical Impression: Acute exacerbation of chronic obstructive airways disease, Hypoxia Admit Date/Time: 12/10/20 21:57 Admit Provider: Yeimi Shane
[2020-12-10 19:59] LABS: NT-proBNP (BNP-Adult 18+) 323 pg/mL (<450); Troponin I < 0.012 ng/mL (0.01-0.034)
[2020-12-10 19:59] LABS: COVID19 -Nasal RAPID Negative (Negative)
[2020-12-10 20:00] LABS: INR 1.3 (0.9-1.3); Prothrombin Time 14.6 SECONDS (10.1-12.7)
[2020-12-10 20:01] LABS: CKMB % Relative Index 1.8 % (1.5-5.0)
[2020-12-10 20:03] LABS: PTT Partial Thromboplastin Tim 34 SECONDS (26.4-36.2)
[2020-12-10 20:05] LABS: Procalcitonin 0.13 ng/mL (<0.5)
[2020-12-10] MEDS: ALBUTEROL/IPRATROPIUM 3 ML AMPUL INH ×3 (20:18→20:42)
[2020-12-10] MEDS: AZITHROMYCIN 500 MG in DEXTROSE 5% IN WATER 250 ML IV (20:23)
[2020-12-10] MEDS: methylPREDNISolone 125 MG/2 ML VIAL IV (20:23)
--- NOTE | 2020-12-10 23:33 | P.HP_ITS ---
History of Present Illness History of Present Illness Date Patient Seen: 12/10/20 Time Patient Seen: 22:45 Chief complaint: Difficulty breathing, COPD flare Narrative: Aly Moore is a 75 y.o. current smoking male with COPD, hypertension, hyperlipidemia, a past history of having had a pulmonary embolism, lower colon cancer was in his usual state of health when he started to become winded for the past 2 weeks and worsened over the past 3 days of which he has since quit smoking. He has been using albuterol inhalers and did one albuterol nebulizer treatment with no effect. He endorses a non-productive cough, generalized fatigue with activity, occasional heartburn and diarrhea, denies difficulty swallowing, pain with breathing, chest pain, nausea or vomiting, dysurea, diarrhea or constipation. He stated he was told he had a fever of 101 on admission. In the ED, he initially presented as febrile with a temp of 101, was administered 3 duonebs. He satted at 92% at rest and the walk test, he desatted down to 86%. Currently he is afebrile, blood pressure 111/53, heart rate 67, respiratory rate 31, oxygen saturation of 95% on 2 L, he weighs 61 kg with a BMI of 18.8. Jenna BC is unremarkable he does have a little bit of lymphopenia at 18%, PT/INRis 14.6/1.3 respectively, and is subtherapeutic, sodium 136, creatinine 1.39 which is elevated over his baseline, GFR is 49.7, glucose 115, total CK is 236, CK-MB is 4.3 troponin is within normal limits, procalcitonin is normal at 0.13, and COVID-19 PCR is negative. The patient's last admission in 2018 was due to a bilateral pulmonary embolism after a hospital stay for pneumonia, and subsequent inactivity at home. Patient History Medical History Anticoagulated on warfarin COPD (chronic obstructive pulmonary disease) Essential hypertension Hx pulmonary embolism Hyperlipemia Pulmonary embolism Surgical History History of partial surgical removal of colon Hx of inguinal hernia repair Family & Social History Family History Mother Lung cancer Father Brain cancer Safety & Behavioral: Feels Safe in Current Yes Environment Been Physically Hurt or No Threatened By a Person Tobacco & Substance use: Smoking Status Current every day smoker alcohol intake frequency 3 or more drinks per day Substance Use Type does not use Meds Home Medications and Allergies Home Medications Medication Instructions Recorded Confirmed Type albuterol sulfate 90 mcg/actuation 2 puff INH Q4HP PRN #0 ea 01/26/16 09/20/20 History aerosol inhaler (Ventolin HFA) lisinopril 20 mg tablet 20 mg PO QDAY #0 01/26/16 09/20/20 History multivitamin (Multiple Vitamins) 1 tab PO QDAY #0 tab 01/26/16 09/20/20 History hydrochlorothiazide 25 mg tablet 25 mg PO QDAY #0 06/29/17 09/20/20 History albuterol sulfate 3 ml INH Q4HP PRN 12/11/20 12/11/20 History bupropion HCl 150 mg 24 hr tablet, 150 mg PO QAM 12/11/20 12/11/20 History extended release omeprazole 20 mg capsule,delayed 20 mg PO DAILY PRN 12/11/20 12/11/20 History release warfarin 2 mg tablet 5 mg PO QDAY 12/11/20 12/11/20 History Allergies Allergy/AdvReac Type Severity Reaction Status Date / Time No Known Drug Allergies Allergy Verified 09/20/20 13:59 Review of Systems Review of Systems ROS: Yes All systems reviewed with the patient and are negative except as otherwise documented Exam Vital Signs (past 8 hours): - 12/10/20 19:05 12/10/20 19:49 12/10/20 20:18 Temperature 101 F H 98.6 F Pulse Rate 71 82 Respiratory Rate 28 H 14 Blood Pressure 124/56 L Pulse Oximetry 96 96 12/10/20 20:44 12/10/20 21:36 12/10/20 21:37 Temperature Pulse Rate 95 H 83 77 Respiratory Rate 14 39 H Blood Pressure 157/67 H Pulse Oximetry 95 91 95 12/10/20 21:46 12/10/20 22:00 12/10/20 22:30 Temperature Pulse Rate 99 H 67 67 Respiratory Rate 28 H 33 H 31 H Blood Pressure 120/58 L 111/53 L Pulse Oximetry 86 L 95 95 Oxygen Delivery Method Nasal Cannula Oxygen Flow Rate 2 Narrative Exam Narrative: Gen: Alert, oriented, then 75 y.o. male, has a dusky appearance HEENT: normocephalic, atraumatic, conjunctiva clear, sclera non-icteric, oral mucosa pink and moist Neck: supple, full ROM, no JVD, trachea is midline Resp: Lungs CTA, tachypneac CV: RRR, no murmur or rubs Abd: soft, non-tender, normoactive BTs Skin: Thin and friable with bruising, no lesions or rashes, Neuro: Alert and oriented X 4 w/no focal deficits. Speech clear and coherent. Extremities: moves all 4 extremities, is ambulatory, negative Vignesh?s sign Psyche: normal mood and affect Objective Labs Result Diagrams: 12/10/20 19:00 12/10/20 19:00 Labs: Laboratory Results - last 24 hr 12/10/20 12/10/20 12/10/20 19:00 19:00 19:00 WBC 8.6 RBC 4.76 Hgb 15.2 Hct 45.4 MCV 95.3 MCH 31.9 MCHC 33.4 RDW 12.8 Plt Count 277 Neut % (Auto) 61.3 Lymph % (Auto) 18.5 L [place] % (Auto) 17.0 H Eos % (Auto) 1.8 L Baso % (Auto) 1.4 Neut # (Auto) 5200 Lymph # (Auto) 1600 [place] # (Auto) 1500 H Eos # (Auto) 200 Baso # (Auto) 100 PT INR APTT Sodium 136 L Potassium 4.9 Chloride 101 Carbon Dioxide 27 BUN 33 H Creatinine 1.39 H Estimated GFR 49.7 L BUN/Creatinine Ratio 23.7 H Glucose 115 H Lactate 1.6 Calcium 10.1 Total Bilirubin 0.4 AST 33 ALT 26 Alkaline Phosphatase 71 Total Creatine Kinase CK-MB (CK-2) CK-MB (CK-2) Rel Index Troponin I NT-Pro-B Natriuret Pep Total Protein 6.9 Albumin 4.1 Globulin 2.8 Albumin/Globulin Ratio 1.5 Procalcitonin SARS-CoV-2 (PCR) 12/10/20 12/10/20 12/10/20 19:00 19:00 19:00 WBC RBC Hgb Hct MCV MCH MCHC RDW Plt Count Neut % (Auto) Lymph % (Auto) [place] % (Auto) Eos % (Auto) Baso % (Auto) Neut # (Auto) Lymph # (Auto) [place] # (Auto) Eos # (Auto) Baso # (Auto) PT 14.6 H INR 1.3 APTT 34 Sodium Potassium Chloride Carbon Dioxide BUN Creatinine Estimated GFR BUN/Creatinine Ratio Glucose Lactate Calcium Total Bilirubin AST ALT Alkaline Phosphatase Total Creatine Kinase 236 H CK-MB (CK-2) 4.30 H CK-MB (CK-2) Rel Index 1.8 Troponin I < 0.012 NT-Pro-B Natriuret Pep 323 Total Protein Albumin Globulin Albumin/Globulin Ratio Procalcitonin 0.13 SARS-CoV-2 (PCR) 12/10/20 19:06 WBC RBC Hgb Hct MCV MCH MCHC RDW Plt Count Neut % (Auto) Lymph % (Auto) [place] % (Auto) Eos % (Auto) Baso % (Auto) Neut # (Auto) Lymph # (Auto) [place] # (Auto) Eos # (Auto) Baso # (Auto) PT INR APTT Sodium Potassium Chloride Carbon Dioxide BUN Creatinine Estimated GFR BUN/Creatinine Ratio Glucose Lactate Calcium Total Bilirubin AST ALT Alkaline Phosphatase Total Creatine Kinase CK-MB (CK-2) CK-MB (CK-2) Rel Index Troponin I NT-Pro-B Natriuret Pep Total Protein Albumin Globulin Albumin/Globulin Ratio Procalcitonin SARS-CoV-2 (PCR) Negative Assessment & Plan Assessment & Plan narrative: Aly Moore will be placed into observation for further management of an acute on chronic COPD exacerbation. 1. Acute on chronic COPD exacerbation, present on admission * Dueneb and albuterol nebulizers q 3 hours alternating * Pulmicort nebulizers bid * Azithromycin 500 mg po starting 12/11. He was administered a first dose of IV azithromycin in the ED * Continious pulse oximetry 2. Subtherapeutic INR of 1.3, present on admission * Patient has a history of a large bilateral pulmonary embolism in 2018 * Goal INR is 2.0-3.0 * He will receive his normal dose of warfarin 4 mg daily and bid heparin 5000 units for anticoagulation * Recommend nursing allow to ambulate with supervision during the day 3. ANTIONETTE, present on admission * Creatinine is 1.39 with a reduced eGFR of 49.7 * Start NS at 100 ml/hour * Recheck electrolytes in the am. 4. Essential hypertension, currently normotensive, present on admission * It is unclear what his lisinopril dose is, he believes it is 10 mg, however this may need to be held in the am due to hypotension and current ANTIONETTE 5. hyperlipidemia, chronic and stable * Continue home dose of rosuvastatin 5 mg at bedtime VTE Prophylaxis: Wells risk score 4.5 [X]Heparin 5000 units subQ twice daily [X] Patient is currently anticoagulated on warfarin and is subtherapeutic. Patient is placed into observation as his stay is not expected to exceed 2 midnights. FEN: IV fluids: NS at 100 ml/hour, diet: heart healthy, labs: CBC, C/BMP, liver enzymes, Mag, PT/INR Code status: DNR/DNI as discussed with the patient who identifies his partner Mickey Chew as his surrogate and POA. I have utilized all available immediate resources (patient, family member, inte rnal and external medical records) to obtain, update, or review the patient?s current home medications. COVID-19 COVID-19 status: Negative Result date/Date tested (Pos, Neg/Pending): 12/10/20 Scores Wells' Criteria for PE Clinical signs and symptoms of DVT: Yes PE is #1 Dx or equally likely: No Heart rate > 100: No Immobilization at least 3 days or surg in previous 4 weeks: No History of PE or DVT: Yes Hemoptysis: No Malignancy w/Treatment within 6 months or palliative: No Wells' PE Score total: 4.5 Quality VTE Deep Vein Thrombosis/Pulmonary Embolism Present on Admission: No MIPS - Admit I confirm the patient?s Advance Care Plan is present, Code status is documented, Surrogate decision maker is in patient?s record [If Yes, STOP here]: Yes
[2020-12-11] VITALS (7 sets, daily range): BP systolic 112–144; BP diastolic 59–69; PULSE 67–71; RESP 14–18; TEMP 36.2–36.4; O2SAT 92–95; BMI 18.8
[2020-12-11] MEDS: SODIUM CHLORIDE 0.9% 1,000 ML 100 ML IV (00:46)
[2020-12-11] MEDS: MELATONIN 3 MG TABLET 6 MG PO (00:46)
--- NOTE | 2020-12-11 02:56 | PC.NURSE ---
Patient came to room 211 at 2330 via bed from ED, accompanied by ED RN. Patient oriented to room, call light given, bed in lowest position. Tele and continuous pulse ox on patient, O2 sat 97 on 2L, RN put patient on RA, O2 Sat 92-95%. Patient wanted to wear 1L for comfort. RN explained to patient importance of hyperventilation with his chronic COPD. Patient still wanted to wear 1L NC O2. Denied other needs.
--- NOTE | 2020-12-11 02:59 | PC.NURSE ---
RN discussed new order that came through for Warfarin to be given at 0300. Shweta Delatorre, stated that she did not want this given at this time. Orders followed.
[2020-12-11 05:18] LABS: Add Manual Diff / Slide Review NO; Basophils Absolute Auto 0 /uL (0-100); Basophils Percent Auto 0.4 % (0-2); Eosinophils Absolute Auto 0 /uL (0-450); Hematocrit 41.7 % (41-53); Hemoglobin 13.9 g/dL (13.5-17.5); Lymphocytes Absolute Auto 600 /uL (1100-4500); Lymphocytes Percent Auto 12.3 % (25-40); Mean Corpuscular HGB Conc 33.3 % (30-36); Mean Corpuscular Hemoglobin 31.8 PG (26-34); Mean Corpuscular Volume 95.5 fL (80-100); Monocytes Absolute Auto 100 /uL (0-900); Monocytes Percent Auto 2.1 % (3-14); Neutrophils Absolute Auto 4000 /uL (1500-7000); Neutrophils Percent Auto 85.2 % (50-75); Platelet Count 263 X10^3/uL (150-400); Red Blood Cell Count 4.37 X10^6/uL (4.5-5.9); Red Cell Distribution Width 12.8 % (11.6-14.8); White Blood Cell Count 4.8 X10^3/uL (4.5-11.0)
[2020-12-11 05:26] LABS: INR 1.3 (0.9-1.3); Prothrombin Time 14.4 SECONDS (10.1-12.7)
[2020-12-11 05:32] LABS: BUN Creatinine Ratio 25.7 (6-22); Blood Urea Nitrogen 37 mg/dL (9-20); Calcium 10.1 mg/dL (8.4-10.2); Carbon Dioxide 28 mmol/L (22-32); Chloride 102 mmol/L (98-107); Estimated Glomerular Filt Rate 47.7 mL/min (>60); Glucose 208 mg/dL (80-110); HEMOLYSIS < 15 (0-50); Magnesium 1.5 mg/dL (1.6-2.3); Sodium 135 mmol/L (137-145)
[2020-12-11 05:34] LABS: Potassium 5.4 mmol/L (3.4-5.1)
[2020-12-11] MEDS: MAGNESIUM SULFATE 2 GM/50 ML PIGGYBACK IV (07:54)
[2020-12-11] MEDS: ALBUTEROL 2.5 MG/3 ML NEB (ADULT) INH ×2 (07:56→13:32)
[2020-12-11] MEDS: BUDESONIDE 0.5 MG/2 ML NEB INH (08:00)
--- NOTE | 2020-12-11 08:02 | PC.NURSE ---
Addendum entered by Zeinab Contreras R.N. 12/11/20 14:23: Patient given discharge information regarding medication by pharmacist. Patient also given d/c information regarding f/u appointment with PCP, s/s of worsening condition and O2 monitoring. Patient verbalized understanding. IV removed, patient tolerated. Patient discharged with belongings and O2 tank via wheelchair. Original Note: Patient resting in bed. Denies SOB, 96% on RA, lungs CTA, RT in for breathing tx at this time. Patient has been voiding using urinal. Denies lightheadedness, dizziness when getting OOB. VSS. Tele remains on. Patient is refusing SCDs.
[2020-12-11] MEDS: lisinopriL 20 MG TABLET PO (09:29)
[2020-12-11] MEDS: HEPARIN 5,000 UNIT/ML VIAL 5000 UNIT SUBCUT (09:29)
[2020-12-11] MEDS: buPROPion XL 150 MG TAB PO (09:29)
[2020-12-11] MEDS: predniSONE 20 MG TABLET 40 MG PO (09:30)
--- NOTE | 2020-12-11 09:33 | CM.IDA ---
Initial DCP Assessment Note Pt is a 75 yo male, resident of [place], presents w/difficulty breathing and found to have a COPD exacerbation PCP: Porfirio Valdes Payer: Trevor BANERJEE Reviewed chart, met w/patient to introduce role. Patient is not forthcoming with information. Patient lives w/ S.O. (spouse?) Mickey and states she's perfect. Patient expects no needs from this PARALEGAL SUPERVISOR, says he has what he needs at home, states Mickey can transport home and assist as needed. Patient eager to return home today. Patient confirms I'm good when this PARALEGAL SUPERVISOR offers services and contact information. No needs expected from DC planning team although will remain available in case this changes today. RAINA Aldana Discharge Planning/Care Management CM Discharge Assessment Start: 12/11/20 09:31 Freq: Status: Active Protocol: Document 12/11/20 09:31 ZARI (Rec: 12/11/20 09:33 ZARI [id number]) Discharge Planning Assessment Assigned Paraprofessional Aide RAINA Pulliam DPOA/Assigned Designee Name Mickey Chew NGA Contact Information [phone] Advance Directives? Yes: HAS AT HOME Advance Directives on File No History Provided By Patient Prior Living Arrangements House Household Members spouse Type of transporation used prior to Drives own vehicle admit Independent with ADL's Yes Is patient alert and oriented? Yes Barriers to Discharge No Discharge Plan Home Transportation Arrangement Partner Mickey Referrals Initiated None needed Whiteboard Updated in Patient Room with Yes name and ext. # of Paraprofessional Aide
--- NOTE | 2020-12-11 10:36 | DIET.PN ---
Dietary Progress Note Assessment: 75 y/o M admitted for SOB secondary to COPD exacerbation. Denies any recent weight loss. Endorses moderate decrease in food intake prior to admit. Attributes this to decrease in appetite, typical of COPD exacerbation. Documented PO is 100%. States he usually eats two meals per day, one snack (chips) and one meal (protein and vegetables). Recently purchased ensure. HT: 180.34 cm WT: 63.6kg UBW: current BMI: 19.6 kg/m2 Labs: Reviewed MNA: 10 Jonathan: 21 Nutrition Diagnosis: Nutrition and food related knowledge deficit r/t limited nutrition education pertaining to COPD nutrient needs aeb pt report Interventions: Provided appropriate handout on COPD nutrition therapy. Discussed increased nutrient needs and difficulty with intake when COPD is exacerbated. Discussed small frequent meals. Reviewed ONS as a tool for decreased appetite. Discussed adding a third eating occurrence daily. He was receptive and denied having further questions. Diet Order: Heart Healthy Diet Monitoring/Evaluations: Plans to d/c today.
--- NOTE | 2020-12-11 12:30 | P.DS_ITS ---
History of Present Illness History of Present Illness Date Patient Seen: 12/11/20 Time Patient Seen: 12:30 Chief complaint: Difficulty breathing, COPD flare Narrative: REX Muller: Aly Moore is a 75 y.o. current smoking male with COPD, hypertension, hyperlipidemia, a past history of having had a pulmonary embolism, lower colon cancer was in his usual state of health when he started to become winded for the past 2 weeks and worsened over the past 3 days of which he has since quit smoking. He has been using albuterol inhalers and did one albuterol nebulizer treatment with no effect. He endorses a non-productive cough, generalized fatigue with activity, occasional heartburn and diarrhea, denies difficulty swallowing, pain with breathing, chest pain, nausea or vomiting, dysurea, diarrhea or constipation. He stated he was told he had a fever of 101 on admission. In the ED, he initially presented as febrile with a temp of 101, was administered 3 duonebs. He satted at 92% at rest and the walk test, he desatted down to 86%. Currently he is afebrile, blood pressure 111/53, heart rate 67, respiratory rate 31, oxygen saturation of 95% on 2 L, he weighs 61 kg with a BMI of 18.8. Jenna BC is unremarkable he does have a little bit of lymphopenia at 18%, PT/INRis 14.6/1.3 respectively, and is subtherapeutic, sodium 136, creatin ine 1.39 which is elevated over his baseline, GFR is 49.7, glucose 115, total CK is 236, CK-MB is 4.3 troponin is within normal limits, procalcitonin is normal at 0.13, and COVID-19 PCR is negative. The patient's last admission in 2018 was due to a bilateral pulmonary embolism after a hospital stay for pneumonia, and subsequent inactivity at home. Discharge Providers Provider Date of admission: 12/10/20 21:57 Discharge Date: 12/11/20 Primary care physician: Porfirio Valdes MD Consults: 12/11/20 00:17 Consult to Dietitian, Adult Routine Comment: Reason For Exam: Decreased appetite Discharge provider: Mickey Sol DO Summary Hospital Course Discharge Diagnosis: 1. COPD exacerbation, present on admission 2. History of pulmonary embolism on anticoagulation with Subtherapeutic INR of 1.3, present on admission 3. ANTIONETTE, present on admission. 4. Essential hypertension, currently normotensive, present on admission 5. hyperlipidemia, chronic and stable 6. Acute respiratory failure with hypoxia. 7. Tobacco use. 8. Hypomagnesemia Hospital Course: This is a 75-year-old male with a history of hypertension, hyperlipidemia, and COPD who was admitted with COPD exacerbation and hypoxia with exertion. He was treated with nebulizer therapies and steroids with improvement in his symptoms the following morning. He was still requiring oxygen with ambulation, desaturating to as low as 85% on room air with ambulation, though he was in the mid 90s at rest. The patient wished to discharge home, and given his improvement in symptoms he was discharged home with oxygen therapy with activity. His mg level was 1.5 which was repleted. He was advised to stop smoking. I recommended he follow up with his PCP quickly. He was discharged on azithromycin for antiinflammatory effect along with oral prednisone. His creatinine was noted to be slightly elevated, 1.44, up slightly from around 1 at the end of last year. Recommend repeat BMP as an outpatient with PCP. His INR was subtherapeutic, coumadin was given at 7.5 mg x1 dose. Recommend rechecking INR with PCP as soon as possible. Exam Vital Signs (past 8 hours): - 12/11/20 05:10 12/11/20 07:49 12/11/20 08:02 Temperature 97.4 F L 97.6 F Pulse Rate 67 69 67 Respiratory Rate 18 14 16 Blood Pressure 112/59 L 114/68 Pulse Oximetry 92 95 92 Oxygen Delivery Method Room Air Oxygen Flow Rate 0 Narrative Exam Narrative: Gen: Alert, oriented, thin 75 year old male. no acute distress. HEENT: normocephalic, atraumatic, conjunctiva clear, sclera non-icteric, oral mucosa pink and moist Neck: supple, full ROM, no JVD, trachea is midline Resp: mild upper lobe wheezing bilaterally, no rhonchi or rales. Increased work of breathing after ambulation, improved with short rest. CV: RRR, no murmur or rubs Abd: soft, non-tender, normoactive BTs Skin: Thin and friable with bruising, no lesions or rashes, Neuro: Alert and oriented X 4 w/no focal deficits. Speech clear and coherent. Extremities: no edema or joint effusion. Psyche: normal mood and affect Objective Labs Result Diagrams: 12/11/20 05:10 12/11/20 05:10 Labs: Laboratory Results - last 24 hr 12/10/20 12/10/20 12/10/20 19:00 19:00 19:00 WBC 8.6 RBC 4.76 Hgb 15.2 Hct 45.4 MCV 95.3 MCH 31.9 MCHC 33.4 RDW 12.8 Plt Count 277 Neut % (Auto) 61.3 Lymph % (Auto) 18.5 L [place] % (Auto) 17.0 H Eos % (Auto) 1.8 L Baso % (Auto) 1.4 Neut # (Auto) 5200 Lymph # (Auto) 1600 [place] # (Auto) 1500 H Eos # (Auto) 200 Baso # (Auto) 100 PT INR APTT Sodium 136 L Potassium 4.9 Chloride 101 Carbon Dioxide 27 BUN 33 H Creatinine 1.39 H Estimated GFR 49.7 L BUN/Creatinine Ratio 23.7 H Glucose 115 H Lactate 1.6 Calcium 10.1 Magnesium Total Bilirubin 0.4 AST 33 ALT 26 Alkaline Phosphatase 71 Total Creatine Kinase CK-MB (CK-2) CK-MB (CK-2) Rel Index Troponin I NT-Pro-B Natriuret Pep Total Protein 6.9 Albumin 4.1 Globulin 2.8 Albumin/Globulin Ratio 1.5 Procalcitonin SARS-CoV-2 (PCR) 12/10/20 12/10/20 12/10/20 19:00 19:00 19:00 WBC RBC Hgb Hct MCV MCH MCHC RDW Plt Count Neut % (Auto) Lymph % (Auto) [place] % (Auto) Eos % (Auto) Baso % (Auto) Neut # (Auto) Lymph # (Auto) [place] # (Auto) Eos # (Auto) Baso # (Auto) PT 14.6 H INR 1.3 APTT 34 Sodium Potassium Chloride Carbon Dioxide BUN Creatinine Estimated GFR BUN/Creatinine Ratio Glucose Lactate Calcium Magnesium Total Bilirubin AST ALT Alkaline Phosphatase Total Creatine Kinase 236 H CK-MB (CK-2) 4.30 H CK-MB (CK-2) Rel Index 1.8 Troponin I < 0.012 NT-Pro-B Natriuret Pep 323 Total Protein Albumin Globulin Albumin/Globulin Ratio Procalcitonin 0.13 SARS-CoV-2 (PCR) 12/10/20 12/11/20 12/11/20 19:06 05:10 05:10 WBC 4.8 RBC 4.37 L Hgb 13.9 Hct 41.7 MCV 95.5 MCH 31.8 MCHC 33.3 RDW 12.8 Plt Count 263 Neut % (Auto) 85.2 H D Lymph % (Auto) 12.3 L [place] % (Auto) 2.1 L Eos % (Auto) 0.0 L Baso % (Auto) 0.4 Neut # (Auto) 4000 Lymph # (Auto) 600 L [place] # (Auto) 100 Eos # (Auto) 0 Baso # (Auto) 0 PT 14.4 H INR 1.3 APTT Sodium Potassium Chloride Carbon Dioxide BUN Creatinine Estimated GFR BUN/Creatinine Ratio Glucose Lactate Calcium Magnesium Total Bilirubin AST ALT Alkaline Phosphatase Total Creatine Kinase CK-MB (CK-2) CK-MB (CK-2) Rel Index Troponin I NT-Pro-B Natriuret Pep Total Protein Albumin Globulin Albumin/Globulin Ratio Procalcitonin SARS-CoV-2 (PCR) Negative 12/11/20 05:10 WBC RBC Hgb Hct MCV MCH MCHC RDW Plt Count Neut % (Auto) Lymph % (Auto) [place] % (Auto) Eos % (Auto) Baso % (Auto) Neut # (Auto) Lymph # (Auto) [place] # (Auto) Eos # (Auto) Baso # (Auto) PT INR APTT Sodium 135 L Potassium 5.4 H Chloride 102 Carbon Dioxide 28 BUN 37 H Creatinine 1.44 H Estimated GFR 47.7 L BUN/Creatinine Ratio 25.7 H Glucose 208 H Lactate Calcium 10.1 Magnesium 1.5 L Total Bilirubin AST ALT Alkaline Phosphatase Total Creatine Kinase CK-MB (CK-2) CK-MB (CK-2) Rel Index Troponin I NT-Pro-B Natriuret Pep Total Protein Albumin Globulin Albumin/Globulin Ratio Procalcitonin SARS-CoV-2 (PCR) [facility] Medical History Anticoagulated on warfarin COPD (chronic obstructive pulmonary disease) Essential hypertension Hx pulmonary embolism Hyperlipemia Pulmonary embolism Surgical History History of partial surgical removal of colon Hx of inguinal hernia repair Family History Mother Lung cancer Father Brain cancer Social History household members: spouse Smoking Status: Former smoker Tobacco: How many years used: 3 alcohol intake: former Discharge Plan Discharge Plan Patient Disposition: Home Provider Discharge Comment: You were admitted to the hospital with an exacerbation of COPD. Your symptoms improved with initial treatments. You will continue oral therapies at home. You still needed a small amount of oxygen with activity, and were sent home with supplemental oxygen. Please follow-up with your primary care provider as soon as possible to possibly adjust your Coumadin dosing and reassess your possible continued need for oxygen home, however I would expect this to improve over the next few days. I would recommend checking your oxygen levels at home with a pulse oximeter, these can be obtained fairly cheaply [id number]. When using oxygen trying not to keep her oxygen levels above 96%, but do use oxygen if your levels are lower than 87%. No other medication changes are necessary at this time. Discharge orders & Medications Prescriptions: New prednisone 20 mg tablet 40 mg PO DAILY 3 Days Qty: 6 RF: 0 azithromycin 250 mg tablet 250 mg PO DAILY 3 Days Qty: 3 RF: 0 Continued albuterol sulfate [Ventolin HFA] 90 MCG/PUFF HFA aerosol inhaler 2 puff INH Q4HP PRN (Reason: SOB) Qty: 0 RF: 0 multivitamin [Multiple Vitamins] 1 EACH tablet 1 tab PO QDAY Qty: 0 RF: 0 lisinopril 20 MG tablet 20 mg PO QDAY Qty: 0 RF: 0 hydrochlorothiazide 25 MG tablet 12.5 mg PO QDAY Qty: 0 RF: 0 omeprazole 20 mg Capsule,Delayed Release(Dr/Ec) 20 mg PO DAILY PRN (Reason: Acid Reflux) RF: 0 bupropion HCl 150 mg Tablet Extended Release 24 Hr 150 mg PO QAM RF: 0 albuterol sulfate 2.5 MG/3 ML solution for nebulization 3 ml INH Q4HP PRN (Reason: SOB) RF: 0 warfarin 2 MG tablet 5 mg PO QDAY RF: 0 Medication counseling provided by Pharmacist: Yes Follow up/Referrals: Porfirio Valdes MD [Primary Care Provider] - Diet/Activity/Treatments Diet: Diet as Tolerated Activity: As tolerated Discharge Data Primary Care Provider: Porfirio Valdes V Attending Provider: Yeimi Bermudez VTE Deep Vein Thrombosis/Pulmonary Embolism Present on Admission: No
== END 2020-12-11 14:00 | disposition home or self-care (01) ==
LOC: ED 21:51 → AC 21:58
PROVIDERS: Admitting Provider Nurse Practitioner Family; Emergency Provider Emergency Medicine; PCP Internal Medicine; Referring Provider Emergency Medicine; Visit Provider Nurse Practitioner Family
DX: J96.01 Acute respiratory failure with hypoxia (principal); J44.1 Chronic obstructive pulmonary disease with (acute) exacerbation; N17.9 Acute kidney failure, unspecified; E83.42 Hypomagnesemia; F17.210 Nicotine dependence, cigarettes, uncomplicated; I10 Essential (primary) hypertension; E78.5 Hyperlipidemia, unspecified; Z86.711 Personal history of pulmonary embolism; Z79.01 Long term (current) use of anticoagulants
CPT/HCPCS: 36415; 71045; 71275; 80048; 80053; 82550; 82553; 83605; 83735; 83880; 84145; 84484; 85025; 85610; 85730; 87635; 93005; 94618; 94640; 94760; 94762; 96361; 96365; 96366; 96367; 96372; 96375; 99285; C9803; G0378; J1644; J2930; J3475; J7613

== ENCOUNTER 2021-04-22 11:18 | Emergency (ER) | payer OTHER, SELFPAY ==
[2020-12-11 00:07] VITALS: BMI 18.8
[2021-04-22] VITALS (54 sets, daily range): BP systolic 95–178; BP diastolic 46–87; PULSE 27–64; RESP 18–27; TEMP 36.4–36.6; O2SAT 95–100; BMI 21.5
--- NOTE | 2021-04-22 11:15 | PC.NURSE ---
pt has pacer/defib pads on and on zoll monitor on monitor
--- NOTE | 2021-04-22 11:40 | PC.NURSE ---
pt on zoll monitor with defib/pacer pads in place
--- NOTE | 2021-04-22 11:47 | DI.RAD.S_ITS ---
PROCEDURE: XR CHEST 1V INDICATIONS: chest pain TECHNIQUE: One view of the chest was acquired. COMPARISON: [facility], CR, XR CHEST 1V, 12/10/2020, 19:14. [facility], CT, CT ANGIO CHEST PE PROTOCOL, 12/10/2020, 19:58. FINDINGS: Surgical changes and devices: None. Lungs and pleura: In emphysematous change. Lungs are clear. No pleural effusions or pneumothorax. Mediastinum: Mediastinal contours appear normal. Heart size is normal. Enlarged pulmonary hilar vessels suggest pulmonary arterial hypertension. Bones and chest wall: No suspicious bony lesions. Overlying soft tissues appear unremarkable. IMPRESSION: 1. COPD, probable pulmonary arterial hypertension. 2. No evidence acute pulmonary process. Dictated by: Omid Alcazar M.D. on 04/22/2021 at 12:30 Approved by: Omid Alcazar M.D. on 04/22/2021 at 12:31
--- NOTE | 2021-04-22 11:55 | ED.GENADULT ---
HPI - General Adult General Chief complaint: Dizziness Stated complaint: Weakness Time Seen by Provider: 04/22/21 11:25 Source: patient and EMS Mode of arrival: EMS History of Present Illness HPI narrative: 75-year-old gentleman with a history of COPD, hypertension, prior pulmonary embolism approximately 3 years ago and continues on warfarin presents with syncopal episodes recurrent. Notes over the last week he has not been quite right describes being somewhat weak, ?fuzzy brain, increased shortness of breath over his baseline COPD complaints and yesterday while sitting parked in his car he had a syncopal episode. He had no sensation that it was coming and only a few seconds after it happened to completely reorient himself. This morning sitting at the breakfast table he had a similar episode. Medics were called and he is found to be significantly bradycardic with a rate in the 30s. He has had no recent headaches, acute neurologic changes, chest pain, palpitations, nausea, vomiting, abdominal pain, lower extremity edema. He does not describe any recent insomnia no PND. Related Data Home Medications Medication Instructions Recorded Confirmed albuterol sulfate 90 mcg/actuation 2 puff INH Q4HP PRN #0 ea 01/26/16 12/11/20 aerosol inhaler (Ventolin HFA) lisinopril 20 mg tablet 20 mg PO QDAY #0 01/26/16 12/11/20 multivitamin (Multiple Vitamins) 1 tab PO QDAY #0 tab 01/26/16 12/11/20 hydrochlorothiazide 25 mg tablet 12.5 mg PO QDAY #0 06/29/17 12/11/20 albuterol sulfate 3 ml INH Q4HP PRN 12/11/20 12/11/20 bupropion HCl 150 mg 24 hr tablet, 150 mg PO QAM 12/11/20 12/11/20 extended release omeprazole 20 mg capsule,delayed 20 mg PO DAILY PRN 12/11/20 12/11/20 release warfarin 2 mg tablet 5 mg PO QDAY 12/11/20 12/11/20 Allergies Allergy/AdvReac Type Severity Reaction Status Date / Time No Known Drug Allergies Allergy Verified 09/20/20 13:59 Review of Systems Review of Systems Narrative: Remainder of complete review of systems is otherwise unremarkable except for that included in the HPI. Patient History Medical History Anticoagulated on warfarin COPD (chronic obstructive pulmonary disease) Essential hypertension Hx pulmonary embolism Hyperlipemia Pulmonary embolism Surgical History History of partial surgical removal of colon Hx of inguinal hernia repair Family History Mother Lung cancer Father Brain cancer Social History household members: spouse Smoking Status: Former smoker Tobacco: How many years used: 3 alcohol intake: former Smoking Status: Former smoker alcohol intake frequency: holidays/special occasions only Substance Use Type: does not use Exam Narrative Exam Narrative: General: Healthy appearing, in no acute distress. Able to give a complete and coherent history. Well-nourished well-developed HEENT: Moist mucous membranes, normal sclera with reactive pupils, Neck: No JVD, supple Respiratory: Lungs are clear to auscultation, no wheezing no rales no rhonchi. Full and symmetrical air movement Cardiac: Bradycardia without murmurs, no bruits Abdomen: Soft, nontender, good bowel tones, no flank pain Skin: Warm and dry, no rashes Neurologic: Grossly neurologically intact with no obvious asymmetries or abnormalities Extremities: No trauma, well perfused Psych: Cooperative, appropriate insight and affect Initial Vital Signs Initial Vital Signs: Vital Signs Temperature 98 F 04/22/21 11:18 Pulse Rate 33 L 04/22/21 11:18 Respiratory Rate 18 04/22/21 11:18 Blood Pressure 132/59 L 04/22/21 11:18 Pulse Oximetry 97 04/22/21 11:18 Course Orders Ordered: ED Orders 04/22/21 11:22 Complete Blood Count AUTO DIFF Stat Comprehensive Metabolic Panel Stat Lipase Stat Magnesium Stat Prothrombin Time INR Stat Troponin & CK Cardiac Panel Stat 04/22/21 11:45 COVID19 -Nasal swab/Pre-Proc Stat 04/22/21 11:47 XR chest 1V Stat EKG-12 Lead Stat Discontinued Medications Atropine Sulfate (Atropine 1 Mg/10 Ml Syringe) 0.5 mg IV NOW ONE Stop: 04/22/21 11:56 Last Admin: 04/22/21 11:58 Dose: 0.5 mg Documented by: TAMIKO Sodium Chloride (Normal Saline 0.9%) 1,000 mls @ 1,000 mls/hr IV BOLUS ONE Stop: 04/22/21 15:53 Last Infusion: 04/22/21 16:44 Dose: 0 mls/hr Documented by: Admin: 04/22/21 15:06 Dose: 1,000 mls/hr Documented by: LINDA Dopamine HCl/Dextrose (Dopamine 400 Mg-D5w 250 Ml) 400 mg in 250 mls @ 12.757 mls/hr IV TITRATE OPAL; Protocol Last Titration: 04/22/21 17:47 Dose: 0 mcg/kg/min, 0 mls/hr Documented by: Admin: 04/22/21 17:13 Dose: 5 mcg/kg/min, 12.757 mls/hr Documented by: TAMIKO Vital Signs Vital signs: Vital Signs - 8 hr 04/22/21 11:18 04/22/21 11:21 04/22/21 11:23 Temperature 98 F Pulse Rate 33 L 43 L 37 L Respiratory Rate 18 27 H Blood Pressure 132/59 L 132/59 L Pulse Oximetry 97 95 97 04/22/21 11:30 04/22/21 11:33 04/22/21 11:44 Temperature Pulse Rate 32 L 34 L 33 L Respiratory Rate 20 20 20 Blood Pressure 133/56 L 135/61 Pulse Oximetry 100 99 98 04/22/21 11:46 04/22/21 12:00 04/22/21 12:01 Temperature Pulse Rate 31 L 30 L 41 L Respiratory Rate 20 18 18 Blood Pressure 130/57 L 132/63 Pulse Oximetry 98 98 98 04/22/21 12:15 04/22/21 12:16 04/22/21 12:30 Temperature Pulse Rate 35 L 35 L 33 L Respiratory Rate 20 20 20 Blood Pressure 111/53 L 119/52 L Pulse Oximetry 99 98 99 04/22/21 12:45 04/22/21 12:46 04/22/21 13:00 Temperature Pulse Rate 33 L 32 L 32 L Respiratory Rate 20 20 18 Blood Pressure 108/63 Pulse Oximetry 96 97 98 04/22/21 13:14 04/22/21 13:15 04/22/21 13:16 Temperature Pulse Rate 31 L 28 L 29 L Respiratory Rate 18 18 18 Blood Pressure 122/54 L 99/50 L Pulse Oximetry 98 99 98 04/22/21 13:18 04/22/21 13:20 04/22/21 13:26 Temperature Pulse Rate 27 L 27 L 28 L Respiratory Rate 19 20 20 Blood Pressure 101/51 L 111/51 L 108/51 L Pulse Oximetry 99 98 97 04/22/21 13:30 04/22/21 13:36 04/22/21 13:42 Temperature Pulse Rate 28 L 27 L 28 L Respiratory Rate 19 19 20 Blood Pressure 105/50 L 102/46 L 102/48 L Pulse Oximetry 98 99 98 04/22/21 13:45 04/22/21 13:51 04/22/21 13:56 Temperature Pulse Rate 27 L 28 L 29 L Respiratory Rate 20 20 20 Blood Pressure 105/48 L 106/48 L 116/51 L Pulse Oximetry 99 98 99 04/22/21 14:00 04/22/21 14:01 04/22/21 14:11 Temperature Pulse Rate 28 L 29 L 28 L Respiratory Rate 20 18 20 Blood Pressure 95/47 L 119/55 L Pulse Oximetry 98 97 98 04/22/21 14:15 04/22/21 14:16 04/22/21 14:30 Temperature Pulse Rate 27 L 27 L 27 L Respiratory Rate 20 20 20 Blood Pressure 108/51 L 106/50 L Pulse Oximetry 98 98 98 04/22/21 14:45 04/22/21 15:00 04/22/21 15:01 Temperature Pulse Rate 28 L 29 L 29 L Respiratory Rate 20 20 20 Blood Pressure 100/49 L Pulse Oximetry 98 98 99 04/22/21 15:15 04/22/21 15:30 04/22/21 15:32 Temperature Pulse Rate 29 L 29 L 30 L Respiratory Rate 20 19 22 Blood Pressure 120/51 L 111/51 L Pulse Oximetry 99 98 99 04/22/21 15:45 04/22/21 16:00 04/22/21 16:05 Temperature Pulse Rate 30 L 31 L 31 L Respiratory Rate 20 20 20 Blood Pressure 121/77 Pulse Oximetry 97 97 97 04/22/21 16:15 04/22/21 16:30 04/22/21 16:31 Temperature Pulse Rate 31 L 30 L 30 L Respiratory Rate 20 20 20 Blood Pressure 118/87 122/58 L Pulse Oximetry 98 99 99 04/22/21 16:45 04/22/21 17:00 04/22/21 17:01 Temperature Pulse Rate 32 L 33 L 33 L Respiratory Rate 20 20 20 Blood Pressure 141/58 H 123/56 L Pulse Oximetry 99 98 99 04/22/21 17:15 04/22/21 17:30 04/22/21 17:31 Temperature Pulse Rate 33 L 32 L 34 L Respiratory Rate 20 20 20 Blood Pressure 137/58 L 120/60 Pulse Oximetry 99 97 97 04/22/21 17:45 04/22/21 17:46 04/22/21 17:47 Temperature 97.5 F L Pulse Rate 57 L 64 55 L Respiratory Rate 20 20 18 Blood Pressure 178/72 H 178/72 H Pulse Oximetry 95 95 95 Medical Decision Making Lab Data Result diagrams: 04/22/21 11:22 04/22/21 11:22 Labs: Lab Results 04/22/21 04/22/21 04/22/21 Range/Units 11:22 11:22 11:22 WBC 5.9 (4.5-11.0) X10^3/uL RBC 4.72 (4.5-5.9) X10^6/uL Hgb 15.1 (13.5-17.5) g/dL Hct 45.1 (41-53) % MCV 95.6 (80-100) fL MCH 32.1 (26-34) PG MCHC 33.5 (30-36) % RDW 13.6 (11.6-14.8) % Plt Count 252 (150-400) X10^3/uL Neut % (Auto) 66.3 (50-75) % Lymph % (Auto) 25.4 (25-40) % Emmons % (Auto) 6.5 (3-14) % Eos % (Auto) 1.0 L (2-4) % Baso % (Auto) 0.8 (0-2) % Neut # (Auto) 3900 (8660-0200) /uL Lymph # (Auto) 1500 (8764-2596) /uL Emmons # (Auto) 400 (0-900) /uL Eos # (Auto) 100 (0-450) /uL Baso # (Auto) 0 (0-100) /uL RBC Morphology Normal morphology PT 27.9 H (10.1-12.7) SECONDS INR 2.4 H (0.9-1.3) Sodium 138 (137-145) mmol/L Potassium 4.8 (3.4-5.1) mmol/L Chloride 105 (98-107) mmol/L Carbon Dioxide 26 (22-32) mmol/L BUN 39 H (9-20) mg/dL Creatinine 1.45 H (0.66-1.25) mg/dL Estimated GFR 47.3 L (>60) mL/min BUN/Creatinine Ratio 26.9 H (6-22) Glucose 148 H (80-110) mg/dL Calcium 10.6 H (8.4-10.2) mg/dL Magnesium 1.7 (1.6-2.3) mg/dL Total Bilirubin 0.7 (0.2-1.3) mg/dL AST 44 (17-59) IU/L ALT 24 (<50) IU/L Alkaline Phosphatase 52 (38-126) U/L Total Creatine Kinase 697 H (55-170) U/L CK-MB (CK-2) 6.88 H (<2.37) ng/mL CK-MB (CK-2) Rel Index 1.0 L (1.5-5.0) % Troponin I 0.019 (0.01-0.034) ng/mL Total Protein 7.2 (6.3-8.2) g/dL Albumin 4.7 (3.5-5.0) g/dL Globulin 2.5 (1.7-4.1) g/dL Albumin/Globulin Ratio 1.9 (1.0-2.8) Lipase 161 (23-300) U/L SARS-CoV-2 (PCR) (Negative) 04/22/21 Range/Units 11:45 WBC (4.5-11.0) X10^3/uL RBC (4.5-5.9) X10^6/uL Hgb (13.5-17.5) g/dL Hct (41-53) % MCV (80-100) fL MCH (26-34) PG MCHC (30-36) % RDW (11.6-14.8) % Plt Count (150-400) X10^3/uL Neut % (Auto) (50-75) % Lymph % (Auto) (25-40) % Emmons % (Auto) (3-14) % Eos % (Auto) (2-4) % Baso % (Auto) (0-2) % Neut # (Auto) (9670-6885) /uL Lymph # (Auto) (0303-6218) /uL Emmons # (Auto) (0-900) /uL Eos # (Auto) (0-450) /uL Baso # (Auto) (0-100) /uL RBC Morphology PT (10.1-12.7) SECONDS INR (0.9-1.3) Sodium (137-145) mmol/L Potassium (3.4-5.1) mmol/L Chloride (98-107) mmol/L Carbon Dioxide (22-32) mmol/L BUN (9-20) mg/dL Creatinine (0.66-1.25) mg/dL Estimated GFR (>60) mL/min BUN/Creatinine Ratio (6-22) Glucose (80-110) mg/dL Calcium (8.4-10.2) mg/dL Magnesium (1.6-2.3) mg/dL Total Bilirubin (0.2-1.3) mg/dL AST (17-59) IU/L ALT (<50) IU/L Alkaline Phosphatase (38-126) U/L Total Creatine Kinase (55-170) U/L CK-MB (CK-2) (<2.37) ng/mL CK-MB (CK-2) Rel Index (1.5-5.0) % Troponin I (0.01-0.034) ng/mL Total Protein (6.3-8.2) g/dL Albumin (3.5-5.0) g/dL Globulin (1.7-4.1) g/dL Albumin/Globulin Ratio (1.0-2.8) Lipase (23-300) U/L SARS-CoV-2 (PCR) Negative (Negative) Imaging Data Chest x-ray: Radiologist's Impression: FINDINGS:? ? Surgical changes and devices:? None.? ? Lungs and pleura:? In emphysematous change.? Lungs are clear.? No pleural effusions or pneumothorax.? ? Mediastinum:? Mediastinal contours appear normal.? Heart size is normal.? Enlarged pulmonary hilar vessels suggest pulmonary arterial hypertension. ? Bones and chest wall:? No suspicious bony lesions.? Overlying soft tissues appear unremarkable.? ? IMPRESSION:? ? 1. COPD, probable pulmonary arterial hypertension. ? 2. No evidence acute pulmonary process. ? ? ? Dictated by: Omid Alcazar M.D. on 04/22/2021 at 12:30? ?? ECG Data Interpretation: Bradycardia in the 30s Appears to be a second-degree type 2 block. IA interval is fixed and every other P-wave has a dropped QRS. No acute ischemic changes MDM Narrative Medical decision making narrative: 75-year-old gentleman who has had 2 syncopal episodes in the last 24 hours while sitting. In a 2nd degree type 2 heart block with a rate in the 30s without signs of acute coronary syndrome or congestive heart failure. Need transfer to facility with pacemaker capacity. At this time there are no beds available at [facility], 0.5 mg of atropine is given if heart rate increased to the mid 40s for brief period of time. 1215 At this point relatively stable with 2nd degree type 2 heart block with concerns for episodes of third-degree block. Will need hospitalization. Will continue to look for bed options. Patient is informed of delays and questions are answered. 4:15 Dr Hester, cardiology at [facility]. Agrees that hospitaliztion, ICU bed given the syncopal episodes and possible need for IV cardiac drugs, cardiac echo and likely pacemaker. If pressures drop below 90 recommendation is to begin dopamine. 5pm Dr Toro, director pharmaceutical. Working on making a bed available in [facility], [place]. Did recommend low-dose dopamine to see if this might increase his rate. Will begin this through a peripheral IV. Still waiting for bed assignment prior to arranging for transport. Findings and plans are reviewed with the patient. Questions are answered. Transport is expected around 5:30 p.m. Critical Care Time Critical Care Time Critical Care Time: Yes Total Critical Care Time: 36 Attestation: Critical care time is separate from other billable procedures. There is a high probability of a significant, sudden or life-threatening deterioration that requires my full and direct attention, intervention and personal management. This critical care time includes consultation with family and other consulting doctors, review of records, and interpretation of data from labs, EKGs and imaging as well as managements of symptomatic bradycardia with severe heart block Discharge Plan Departure Patient Disposition: [facility] Clinical Impression: Acquired heart block Prescriptions: No Action albuterol sulfate [Ventolin HFA] 90 MCG/PUFF HFA aerosol inhaler 2 puff INH Q4HP PRN (Reason: SOB) Qty: 0 0RF multivitamin [Multiple Vitamins] 1 EACH tablet 1 tab PO QDAY Qty: 0 0RF lisinopril 20 MG tablet 20 mg PO QDAY Qty: 0 0RF hydrochlorothiazide 25 MG tablet 12.5 mg PO QDAY Qty: 0 0RF omeprazole 20 mg Capsule,Delayed Release(Dr/Ec) 20 mg PO DAILY PRN (Reason: Acid Reflux) 0RF bupropion HCl 150 mg Tablet Extended Release 24 Hr 150 mg PO QAM 0RF albuterol sulfate 2.5 MG/3 ML solution for nebulization 3 ml INH Q4HP PRN (Reason: SOB) 0RF warfarin 2 MG tablet 5 mg PO QDAY 0RF Rx Instructions: MW 1.5 tabs, T//F/S/S 1 tab Referrals: Porfirio Valdes MD [Primary Care Provider] -
[2021-04-22] MEDS: ATROPINE 1 MG/10 ML SYRINGE 0.5 MG IV (11:58)
[2021-04-22 12:02] LABS: Basophils Absolute Auto 0 /uL (0-100); Basophils Percent Auto 0.8 % (0-2); Eosinophils Absolute Auto 100 /uL (0-450); Hematocrit 45.1 % (41-53); Hemoglobin 15.1 g/dL (13.5-17.5); Lymphocytes Absolute Auto 1500 /uL (1100-4500); Lymphocytes Percent Auto 25.4 % (25-40); Mean Corpuscular HGB Conc 33.5 % (30-36); Mean Corpuscular Hemoglobin 32.1 PG (26-34); Mean Corpuscular Volume 95.6 fL (80-100); Monocytes Absolute Auto 400 /uL (0-900); Monocytes Percent Auto 6.5 % (3-14); Neutrophils Absolute Auto 3900 /uL (1500-7000); Neutrophils Percent Auto 66.3 % (50-75); Red Blood Cell Count 4.72 X10^6/uL (4.5-5.9); Red Cell Distribution Width 13.6 % (11.6-14.8); White Blood Cell Count 5.9 X10^3/uL (4.5-11.0)
[2021-04-22 12:04] LABS: Add Manual Diff / Slide Review SLIDE REVIEW
[2021-04-22 12:14] LABS: Alanine Aminotransferase 24 IU/L (<50); Albumin 4.7 g/dL (3.5-5.0); Albumin Globulin Ratio 1.9 (1.0-2.8); Alkaline Phosphatase 52 U/L (38-126); Aspartate Aminotransferase 44 IU/L (17-59); BUN Creatinine Ratio 26.9 (6-22); Bilirubin Total 0.7 mg/dL (0.2-1.3); Blood Urea Nitrogen 39 mg/dL (9-20); Calcium 10.6 mg/dL (8.4-10.2); Carbon Dioxide 26 mmol/L (22-32); Chloride 105 mmol/L (98-107); Creatine Kinase 697 U/L (55-170); Estimated Glomerular Filt Rate 47.3 mL/min (>60); Globulin 2.5 g/dL (1.7-4.1); Glucose 148 mg/dL (80-110); HEMOLYSIS < 15 (0-50); Lipase 161 U/L (23-300); Magnesium 1.7 mg/dL (1.6-2.3); Potassium 4.8 mmol/L (3.4-5.1); Sodium 138 mmol/L (137-145); Total Protein 7.2 g/dL (6.3-8.2)
[2021-04-22 12:18] LABS: INR 2.4 (0.9-1.3); Prothrombin Time 27.9 SECONDS (10.1-12.7)
[2021-04-22 12:25] LABS: Troponin I 0.019 ng/mL (0.01-0.034)
[2021-04-22 12:29] LABS: Creatine Kinase MB 6.88 ng/mL (<2.37)
[2021-04-22 12:38] LABS: COVID19 -Nasal RAPID Negative (Negative)
[2021-04-22 12:41] LABS: Platelet Count 252 X10^3/uL (150-400)
[2021-04-22 12:42] LABS: RBC Morphology Normal Morphology
[2021-04-22] MEDS: SODIUM CHLORIDE 0.9% 1,000 ML 1000 ML IV (15:06)
[2021-04-22] MEDS: DOPAMINE HCL IN DEXTROSE 5 % 400 MG/250 ML PLAST..BAG 12.757 MG IV (17:13)
--- NOTE | 2021-04-22 17:42 | PC.NURSE ---
[facility]icult[facility] workerorlando magaña [phone]
== END 2021-04-22 17:47 | disposition short-term general hospital (02) ==
PROVIDERS: Emergency Provider Emergency Medicine; PCP Internal Medicine
DX: I44.1 Atrioventricular block, second degree (principal); Z79.01 Long term (current) use of anticoagulants; Z87.891 Personal history of nicotine dependence; Z20.822 Contact with and (suspected) exposure to COVID-19
CPT/HCPCS: 36415; 71045; 80053; 82550; 82553; 83690; 83735; 84484; 85025; 85610; 87635; 93005; 93010; 99284; 99291; 99292; C9803; J0461

== ENCOUNTER → 2022-02-17 10:57 | Outpatient (CLI) | payer OTHER, SELFPAY ==
[2020-12-11 00:07] VITALS: BMI 18.8
[2022-02-17 12:39] LABS: BUN Creatinine Ratio 23.9 (6-22); Blood Urea Nitrogen 32 mg/dL (9-20); Calcium 9.4 mg/dL (8.4-10.2); Carbon Dioxide 28 mmol/L (22-32); Chloride 99 mmol/L (98-107); Cholesterol 174 mg/dL (140-199); Estimated Glomerular Filt Rate 55 mL/min (>60); Glucose 92 mg/dL (80-110); HDL Cholesterol 104 mg/dL (40-60); HEMOLYSIS < 15 (0-50); LDL Cholesterol Calculated 58 mg/dL (<100); Potassium 4.7 mmol/L (3.4-5.1); Sodium 139 mmol/L (137-145); Triglycerides 58 mg/dL (35-150)
== END ==
PROVIDERS: PCP Internal Medicine; Referring Provider Internal Medicine Cardiovascular Disease; Visit Provider Internal Medicine Cardiovascular Disease
DX: I51.9 Heart disease, unspecified (principal); I10 Essential (primary) hypertension
CPT/HCPCS: 36415; 80048; 80061

== ENCOUNTER 2022-06-09 18:44 | Emergency (ER) | payer OTHER, SELFPAY ==
[2020-12-11 00:07] VITALS: BMI 18.8
[2022-06-09] VITALS (15 sets, daily range): BP systolic 105–132; BP diastolic 56–71; PULSE 66–89; RESP 24–48; TEMP 36.7–37.9; O2SAT 92–98; BMI 20.7
--- NOTE | 2022-06-09 19:00 | DI.RAD.S_ITS ---
PROCEDURE: XR CHEST 1V INDICATIONS: suspected sepsis TECHNIQUE: One view of the chest was acquired. COMPARISON: [facility], CR, XR CHEST 1V, 04/22/2021, 12:09. FINDINGS: Surgical changes and devices: Multi lead left-sided pacemaker. Overlying monitoring wires. Lungs and pleura: Lungs are clear. No pleural effusions or pneumothorax. Mediastinum: Mediastinal contours appear normal. Heart size is normal. Prominent central pulmonary arteries. No central vascular congestion. Bones and chest wall: No suspicious bony lesions. Remote right rib fracture. Overlying soft tissues appear unremarkable. IMPRESSION: No acute cardiopulmonary disease. Pulmonary artery prominence suggesting emphysema. Dictated by: Awilda Rowell M.D. on 06/09/2022 at 19:56 Approved by: Awilda Rowell M.D. on 06/09/2022 at 19:57
[2022-06-09] MEDS: ALBUTEROL/IPRATROPIUM 3 ML AMPUL INH (19:11)
[2022-06-09] MEDS: methylPREDNISolone 125 MG/2 ML VIAL IV (19:17)
[2022-06-09] MEDS: ACETAMINOPHEN 325 MG TABLET 650 MG PO (19:17)
[2022-06-09] MEDS: ALBUTEROL 2.5 MG/3 ML NEB (ADULT) 10 MG INH (19:30)
[2022-06-09 19:47] LABS: Add Manual Diff / Slide Review NO; Basophils Absolute Auto 0 /uL (0-100); Basophils Percent Auto 0.4 % (0-2); Eosinophils Absolute Auto 100 /uL (0-450); Eosinophils Percent Auto 0.9 % (2-4); Hematocrit 42.5 % (41-53); Hemoglobin 14.1 g/dL (13.5-17.5); Lymphocytes Absolute Auto 1400 /uL (1100-4500); Lymphocytes Percent Auto 11.9 % (25-40); Mean Corpuscular HGB Conc 33.2 % (30-36); Mean Corpuscular Volume 96.3 fL (80-100); Monocytes Absolute Auto 1300 /uL (0-900); Monocytes Percent Auto 11.1 % (3-14); Neutrophils Absolute Auto 8900 /uL (1500-7000); Neutrophils Percent Auto 75.7 % (50-75); Platelet Count 248 X10^3/uL (150-400); Red Blood Cell Count 4.41 X10^6/uL (4.5-5.9); Red Cell Distribution Width 13.9 % (11.6-14.8); White Blood Cell Count 11.8 X10^3/uL (4.5-11.0)
[2022-06-09 19:55] LABS: INR 3.7 (0.9-1.3); Prothrombin Time 42.6 SECONDS (10.1-12.7)
[2022-06-09 19:57] LABS: D Dimer 319 ng/ml (<500)
[2022-06-09 19:58] LABS: PTT Partial Thromboplastin Tim 43 SECONDS (26-36)
[2022-06-09 20:06] LABS: Alanine Aminotransferase 30 IU/L (<50); Albumin 4.3 g/dL (3.5-5.0); Albumin Globulin Ratio 1.7 (1.0-2.8); Alkaline Phosphatase 57 U/L (38-126); Aspartate Aminotransferase 29 IU/L (17-59); BUN Creatinine Ratio 22.7 (6-22); Bilirubin Total 0.5 mg/dL (0.2-1.3); Blood Urea Nitrogen 30 mg/dL (9-20); Calcium 9.3 mg/dL (8.4-10.2); Carbon Dioxide 24 mmol/L (22-32); Chloride 105 mmol/L (98-107); Estimated Glomerular Filt Rate 56 mL/min (>60); Globulin 2.6 g/dL (1.7-4.1); Glucose 102 mg/dL (80-110); HEMOLYSIS < 15 (0-50); Lactate (Lactic Acid) 1.6 mmol/L (0.7-2.1); Lipase 106 U/L (23-300); Potassium 4.9 mmol/L (3.4-5.1); Sodium 139 mmol/L (137-145); Total Protein 6.9 g/dL (6.3-8.2)
[2022-06-09 20:14] LABS: NT-proBNP (BNP-Adult 18+) 1080 pg/mL (<450)
[2022-06-09 20:22] LABS: Procalcitonin 0.37 ng/mL (<0.5)
[2022-06-09 20:25] LABS: Adenovirus Not Detected (Not Detect); B. parapertussis Not Detected (Not Detecte); Bordetella pertussis Not Detected (Not Detecte); Chlamydophila pneumoniae Not Detected (Not Detect); Coronavirus 229E Not Detected (Not Detect); Coronavirus HKU1 Not Detected (Not Detect); Coronavirus NL 63 Not Detected (Not Detect); Coronavirus OC43 Not Detected (Not Detect); Human Metapneumovirus Not Detected (Not Detect); Human Rhinovirus/Enterovirus Not Detected (Not Detect); Influenza A Not Detected (Not Detect); Influenza B Not Detected (Not Detect); Mycoplasma pneumoniae Not Detected (Not Detect); Parainfluenza Virus 1 Not Detected (Not Detect); Parainfluenza Virus 2 Not Detected (Not Detect); Parainfluenza Virus 3 Not Detected (Not Detect); Parainfluenza Virus 4 Not Detected (Not Detect); Respiratory Syncytial Virus Not Detected (Not Detect); SARS- CoV-2 Not Detected (Not Detecte)
[2022-06-09 21:36] LABS: Bacteria Urine Moderate (10-30); Culture Indicated Urine Specimen Cultured; RBC Urine None Seen (0-5/HPF); Squamous Epithelial Cell Urine 1-5 /HPF (0-5/HPF); WBC Urine 10-30/HPF (0-5/HPF)
--- NOTE | 2022-06-09 22:45 | ED_ITS ---
HPI - SOB/Dyspnea General Chief Complaint: Shortness of Breath/Dyspnea Stated Complaint: SOB,COPD exacerbation Time Seen by Provider: 06/09/22 19:03 Source: patient Mode of arrival: EMS Limitations: no limitations History of Present Illness HPI Narrative: Patient is a 76-year-old male history of COPD hypertension pacemaker pulmonary embolism on warfarin presenting today with increasing shortness of breath. He said this afternoon he had a gradual increase in shortness of breath. He have oxygen at home but he does not wear it all the time he is supposed to wear at night sometimes he does. Not really hypoxic here in the ED. He is also having some painful frequent urination for last couple of days he was up quite a lot last night which he noticed. He is not had any fever. He denies any worsening mucous no chest pain or tightness. No abdominal pain nausea or vomiting Related Data Home Medications Medication Instructions Recorded Confirmed albuterol sulfate 90 mcg/actuation 2 puff INH Q4HP PRN SOB #0 ea 01/26/16 12/11/20 aerosol inhaler (Ventolin HFA) lisinopril 20 mg tablet 20 mg PO QDAY ##0 01/26/16 12/11/20 multivitamin (Multiple Vitamins 1 tab PO QDAY #0 tabs 01/26/16 12/11/20 tablet) hydrochlorothiazide 25 mg tablet 12.5 mg PO QDAY ##0 06/29/17 12/11/20 albuterol sulfate 2.5 mg/3 mL 3 ml INH Q4HP PRN SOB 12/11/20 12/11/20 (0.083 %) solution for nebulization bupropion HCl 150 mg 24 hr tablet, 150 mg PO QAM 12/11/20 12/11/20 extended release omeprazole 20 mg capsule,delayed 20 mg PO DAILY PRN Acid Reflux 12/11/20 12/11/20 release warfarin 2 mg tablet 5 mg PO QDAY 12/11/20 12/11/20 Previous Rx's Medication Instructions Recorded cephalexin 500 mg capsule 500 mg PO BID 7 days #14 caps 06/09/22 prednisone 10 mg tablet 10 mg PO DAILY #30 tabs 06/09/22 Allergies Allergy/AdvReac Type Severity Reaction Status Date / Time No Known Drug Allergies Allergy Verified 06/09/22 19:09 Review of Systems Review of Systems ROS Unobtainable: All systems reviewed & are unremarkable except as noted in HPI and below Patient History Medical History Anticoagulated on warfarin COPD (chronic obstructive pulmonary disease) Essential hypertension Hx pulmonary embolism Hyperlipemia Pulmonary embolism Surgical History History of partial surgical removal of colon Hx of inguinal hernia repair Family History Mother Lung cancer Father Brain cancer Social History household members: spouse Smoking Status: Former smoker Tobacco: How many years used: 3 alcohol intake: former Smoking Status: Former smoker alcohol intake frequency: holidays/special occasions only Substance Use Type: does not use Exam Initial Vital Signs Initial Vital Signs: Vital Signs Temperature 100.2 F H 06/09/22 18:23 Pulse Rate 89 06/09/22 18:23 Respiratory Rate 30 H 06/09/22 18:23 Blood Pressure 105/58 L 06/09/22 18:23 Pulse Oximetry 98 06/09/22 18:23 Oxygen Delivery Method 06/09/22 18:23 Oxygen Flow Rate 2 06/09/22 18:23 GENERAL: Alert 76-year-old thin male and in no acute distress. HEENT: Head atraumatic,EOMI, pupils reactive, face symmetric, moist mucous membranes CARDIOVASCULAR: Regular rate and rhythm without murmurs, rubs or gallops. RESPIRATORY: Decreased breath sounds bilaterally no wheezes or rales mild tachypnea but no conversational ABDOMEN: Soft, nontender. Normoactive bowel sounds all 4 quadrants. No guarding or rebound. : No CVA tenderness EXTREMITIES: Normal range of motion, no clubbing or edema. Neurovascularly intact NEUROLOGICAL: Alert and oriented x4.Normal gait and speech. SKIN: Warm, dry, no laceration, no petechiae, no rashes or lesions. Course Orders Ordered: ED Orders 06/09/22 19:00 XR chest 1V Stat EKG-12 Lead Stat RT Consult Eval and Treat NOW 06/09/22 19:18 Respiratory Panel (Film Array) Stat 06/09/22 19:36 Blood Culture Stat Complete Blood Count AUTO DIFF Stat Comprehensive Metabolic Panel Stat DD [D Dimer] Stat Lactate (Lactic Acid) Stat Lipase Stat NT-proBNP (BNP-Adult 18+) Stat Partial Thromboplastin Time Stat Procalcitonin Stat Prothrombin Time INR Stat 06/09/22 21:14 Urine Culture Stat Urine Microscopic Stat Discontinued Medications Acetaminophen (Acetaminophen 325 Mg Tablet) 650 mg PO NOW ONE Stop: 06/09/22 19:13 Last Admin: 06/09/22 19:17 Dose: 650 mg Documented By: DIXON Albuterol (Albuterol 2.5 Mg/3 Ml Neb (Adult)) 10 mg INH NOW ONE Stop: 06/09/22 19:28 Last Admin: 06/09/22 19:30 Dose: 10 mg Documented By: ALEXIS Albuterol (Albuterol 2.5 Mg/3 Ml Neb (Adult)) 10 mg INH NOW ONE Stop: 06/09/22 19:29 Last Admin: 06/09/22 20:36 Dose: Not Given Documented By: DIXON Albuterol/Ipratropium (Albuterol/Ipratropium 3 Ml Ampul) 3 ml INH NOW ONE Stop: 06/09/22 19:09 Last Admin: 06/09/22 19:11 Dose: 3 ml Documented By: ALEXIS Cefazolin Sodium (Cephalexin 250 Mg Prepack) 1 bottle MISC SEEINSTR ONE Stop: 06/09/22 22:57 Last Admin: 06/09/22 23:15 Dose: 1 prepack Documented By: NAIDA Lorazepam (Lorazepam 0.5 Mg Tablet) 0.5 mg PO NOW ONE Stop: 06/09/22 23:28 Last Admin: 06/09/22 23:31 Dose: 0.5 mg Documented By: NAIDA Methylprednisolone (Methylprednisolone 125 Mg/2 Ml Vial) 125 mg IV NOW ONE Stop: 06/09/22 19:10 Last Admin: 06/09/22 19:17 Dose: 125 mg Documented By: DIXON Vital Signs Vital signs: Vital Signs - 8 hr 06/09/22 19:11 06/09/22 19:30 06/09/22 18:48 Temperature Pulse Rate 69 67 84 Respiratory Rate 30 H 24 Blood Pressure Pulse Oximetry 95 94 95 Oxygen Delivery Method Room Air Room Air Oxygen Flow Rate 0 0 Fraction of Inspired Oxygen 21 21 06/09/22 18:50 06/09/22 18:50 06/09/22 19:00 Temperature Pulse Rate 75 Respiratory Rate 46 H Blood Pressure 105/58 L 119/71 Pulse Oximetry 98 Oxygen Delivery Method Oxygen Flow Rate Fraction of Inspired Oxygen 06/09/22 19:00 06/09/22 19:30 06/09/22 19:31 Temperature Pulse Rate 69 67 Respiratory Rate 39 H 30 H Blood Pressure 132/63 Pulse Oximetry 98 97 Oxygen Delivery Method Oxygen Flow Rate Fraction of Inspired Oxygen 06/09/22 19:31 06/09/22 20:00 06/09/22 20:00 Temperature Pulse Rate 66 69 Respiratory Rate 29 H 39 H Blood Pressure 122/60 Pulse Oximetry 97 94 Oxygen Delivery Method Nasal Cannula Oxygen Flow Rate 2 Fraction of Inspired Oxygen 06/09/22 20:30 06/09/22 20:30 06/09/22 21:00 Temperature Pulse Rate 70 Respiratory Rate 37 H Blood Pressure 114/56 L 131/59 L Pulse Oximetry 92 Oxygen Delivery Method Room Air Oxygen Flow Rate Fraction of Inspired Oxygen 06/09/22 21:00 06/09/22 21:30 06/09/22 22:00 Temperature Pulse Rate 74 74 69 Respiratory Rate 48 H 33 H 40 H Blood Pressure Pulse Oximetry 92 Oxygen Delivery Method Oxygen Flow Rate Fraction of Inspired Oxygen 06/09/22 22:30 06/09/22 23:00 06/09/22 23:42 Temperature 98.1 F Pulse Rate 69 69 72 Respiratory Rate 24 24 Blood Pressure 129/69 Pulse Oximetry 93 93 Oxygen Delivery Method Room Air Oxygen Flow Rate Fraction of Inspired Oxygen MDM - SOB/Dyspnea Lab Data 06/09/22 19:36 06/09/22 19:36 Labs: Lab Results 06/09/22 06/09/22 06/09/22 Range/Units 19:18 19:36 19:36 WBC 11.8 H (4.5-11.0) X10^3/uL RBC 4.41 L (4.5-5.9) X10^6/uL Hgb 14.1 (13.5-17.5) g/dL Hct 42.5 (41-53) % MCV 96.3 (80-100) fL MCH 32.0 (26-34) PG MCHC 33.2 (30-36) % RDW 13.9 (11.6-14.8) % Plt Count 248 (150-400) X10^3/uL Neut % (Auto) 75.7 H (50-75) % Lymph % (Auto) 11.9 L (25-40) % [place] % (Auto) 11.1 (3-14) % Eos % (Auto) 0.9 L (2-4) % Baso % (Auto) 0.4 (0-2) % Neut # (Auto) 8900 H (2449-7938) /uL Lymph # (Auto) 1400 (0461-6863) /uL [place] # (Auto) 1300 H (0-900) /uL Eos # (Auto) 100 (0-450) /uL Baso # (Auto) 0 (0-100) /uL PT 42.6 H (10.1-12.7) SECONDS INR 3.7 H (0.9-1.3) APTT 43 H (26-36) SECONDS D-Dimer 319 (<500) ng/ml Sodium (137-145) mmol/L Potassium (3.4-5.1) mmol/L Chloride (98-107) mmol/L Carbon Dioxide (22-32) mmol/L BUN (9-20) mg/dL Creatinine (0.66-1.25) mg/dL Estimated GFR (>60) mL/min BUN/Creatinine Ratio (6-22) Glucose (80-110) mg/dL Lactate (0.7-2.1) mmol/L Calcium (8.4-10.2) mg/dL Total Bilirubin (0.2-1.3) mg/dL AST (17-59) IU/L ALT (<50) IU/L Alkaline Phosphatase (38-126) U/L NT-Pro-B Natriuret Pep (<450) pg/mL Total Protein (6.3-8.2) g/dL Albumin (3.5-5.0) g/dL Globulin (1.7-4.1) g/dL Albumin/Globulin Ratio (1.0-2.8) Lipase (23-300) U/L Procalcitonin (<0.5) ng/mL Urine RBC (0-5/HPF) Urine WBC (0-5/HPF) Ur Squamous Epith Cells (0-5/HPF) Urine Bacteria (None) Ur Culture Indicated? Chlamy pneumoniae PCR Not detected (Not Detect) Adenovirus (PCR) Not detected (Not Detect) B. pertussis DNA (PCR) Not detected (Not Detecte) B.parapertussis DNA PCR Not detected (Not Detecte) Coronavirus OC43 (PCR) Not detected (Not Detect) Coronavirus HKU1 (PCR) Not detected (Not Detect) Coronavirus 229E (PCR) Not detected (Not Detect) SARS-CoV-2 (PCR) Not detected (Not Detecte) Coronavirus NL63 (PCR) Not detected (Not Detect) Human Metapneumovir PCR Not detected (Not Detect) Influenza Type A (PCR) Not detected (Not Detect) Influenza Type B (PCR) Not detected (Not Detect) M. pneumoniae (PCR) Not detected (Not Detect) Parainfluenza 1 (PCR) Not detected (Not Detect) Parainfluenza 2 (PCR) Not detected (Not Detect) Parainfluenza 3 (PCR) Not detected (Not Detect) Parainfluenza 4 (PCR) Not detected (Not Detect) RSV (PCR) Not detected (Not Detect) Entero/Rhino (PCR) Not detected (Not Detect) 06/09/22 06/09/22 06/09/22 Range/Units 19:36 19:36 21:14 WBC (4.5-11.0) X10^3/uL RBC (4.5-5.9) X10^6/uL Hgb (13.5-17.5) g/dL Hct (41-53) % MCV (80-100) fL MCH (26-34) PG MCHC (30-36) % RDW (11.6-14.8) % Plt Count (150-400) X10^3/uL Neut % (Auto) (50-75) % Lymph % (Auto) (25-40) % [place] % (Auto) (3-14) % Eos % (Auto) (2-4) % Baso % (Auto) (0-2) % Neut # (Auto) (8922-5455) /uL Lymph # (Auto) (8826-4672) /uL [place] # (Auto) (0-900) /uL Eos # (Auto) (0-450) /uL Baso # (Auto) (0-100) /uL PT (10.1-12.7) SECONDS INR (0.9-1.3) APTT (26-36) SECONDS D-Dimer (<500) ng/ml Sodium 139 (137-145) mmol/L Potassium 4.9 (3.4-5.1) mmol/L Chloride 105 (98-107) mmol/L Carbon Dioxide 24 (22-32) mmol/L BUN 30 H (9-20) mg/dL Creatinine 1.32 H (0.66-1.25) mg/dL Estimated GFR 56 L (>60) mL/min BUN/Creatinine Ratio 22.7 H (6-22) Glucose 102 (80-110) mg/dL Lactate 1.6 (0.7-2.1) mmol/L Calcium 9.3 (8.4-10.2) mg/dL Total Bilirubin 0.5 (0.2-1.3) mg/dL AST 29 (17-59) IU/L ALT 30 (<50) IU/L Alkaline Phosphatase 57 (38-126) U/L NT-Pro-B Natriuret Pep 1080 H (<450) pg/mL Total Protein 6.9 (6.3-8.2) g/dL Albumin 4.3 (3.5-5.0) g/dL Globulin 2.6 (1.7-4.1) g/dL Albumin/Globulin Ratio 1.7 (1.0-2.8) Lipase 106 (23-300) U/L Procalcitonin 0.37 (<0.5) ng/mL Urine RBC None seen (0-5/HPF) Urine WBC 10-30/hpf H (0-5/HPF) Ur Squamous Epith Cells 1-5 /hpf (0-5/HPF) Urine Bacteria Moderate (10-30) H (None) Ur Culture Indicated? Specimen cultured Chlamy pneumoniae PCR (Not Detect) Adenovirus (PCR) (Not Detect) B. pertussis DNA (PCR) (Not Detecte) B.parapertussis DNA PCR (Not Detecte) Coronavirus OC43 (PCR) (Not Detect) Coronavirus HKU1 (PCR) (Not Detect) Coronavirus 229E (PCR) (Not Detect) SARS-CoV-2 (PCR) (Not Detecte) Coronavirus NL63 (PCR) (Not Detect) Human Metapneumovir PCR (Not Detect) Influenza Type A (PCR) (Not Detect) Influenza Type B (PCR) (Not Detect) M. pneumoniae (PCR) (Not Detect) Parainfluenza 1 (PCR) (Not Detect) Parainfluenza 2 (PCR) (Not Detect) Parainfluenza 3 (PCR) (Not Detect) Parainfluenza 4 (PCR) (Not Detect) RSV (PCR) (Not Detect) Entero/Rhino (PCR) (Not Detect) Urine Dip Bedside Urine Glucose Negative Bedside Urine Bilirubin - Negative Bedside Urine Ketone - Negative Urine Specific [place] 1.030 Bedside Urine Occult Blood - Negative Bedside Urine pH 6.0 Bedside Urine Protein +/- 15 Bedside Urine Urobilinogen - Negative Bedside Urine Nitrite + Positive Bedside Urine Leukocytes +/- 15 Esterase Imaging Data Chest x-ray: Radiologist's Impression: Signed Patient: Aly Moore MR#: [id number] : 1945 Acct:[id number] Age/Sex: 76 / M Date of Service: 06/09/22 Loc: ED Accession Number: [id number] ?? Procedure: XR chest 1V Ordering Provider: Diana Suarez D.O. PROCEDURE:? XR CHEST 1V ? INDICATIONS:? suspected sepsis ? TECHNIQUE:? One view of the chest was acquired.? ? COMPARISON:? [facility], , XR CHEST 1V, 04/22/2021, 12:09. ? FINDINGS:? ? Surgical changes and devices:? Multi lead left-sided pacemaker.? Overlying mo nitoring wires. ? Lungs and pleura:? Lungs are clear.? No pleural effusions or pneumothorax.? ? Mediastinum:? Mediastinal contours appear normal.? Heart size is normal.? Prominent central pulmonary arteries.? No central vascular congestion. ? Bones and chest wall:? No suspicious bony lesions.? Remote right rib fracture.? Overlying soft tissues appear unremarkable.? ? IMPRESSION:? ? No acute cardiopulmonary disease.? ? Pulmonary artery prominence suggesting emphysema. ? ? Dictated by: Awilda Rowell M.D. on 06/09/2022 at 19:56 ?? ECG Data Interpretation: Paced rhythm rate [address] changes no Sgarbossa criteria MDM Narrative Medical decision making narrative: Patient is 76-year-old male history of COPD presenting with increasing shortness of breath and painful frequent urination. He initially was mildly tachypneic with decreased breath sounds bilaterally given a DuoNeb with slight improvement. He was then given a continuous albuterol which seemed to help him a lot. Solu- Medrol was also given. He was at no time severely dyspneic or unable to talk and he was never hypoxic. Nursing staff initially put him on nasal cannula but on room air he is 93-94%. Chest x-ray is negative without signs of pneumonia. Blood work is overall reassuring. Mild leukocytosis of 11.8 with slight left shift electrolytes are within normal limits creatinine is 1.32 which seems stable for him BNP is elevated at 1080, however not sure of the significance. His lungs are not crackly he does not appear fluid overloaded. He does not have a prior history of congestive heart failure. He is no peripheral edema. Symptoms improved with COPD exacerbation treatment. He is found have a UTI he has nitrates in his urine. He is without signs of sepsis or severe sepsis. Vitals are stable without tachycardia or hypotension, he is also afebrile here in the ED He is given a prepack of Keflex and instructed to fill prescription. At this time he really does not meet any criteria to stay in the hospital nor does he want to. He is happy to go home and is overall back to his baseline respiratory status. He reports that he has plenty of albuterol inhalers at home. Discharge Plan Departure Patient Disposition: Home Clinical Impression: Acute exacerbation of chronic obstructive pulmonary disease (COPD), Acute UTI Instructions: Chronic Obstructive Pulmonary Disease, DI for Urinary Tract Infection (UTI) Activity Restrictions/Additional Instructions: *You have been diagnosed with COPD exacerbation and bladder infection *What to do: At this time her breathing seems to be stabilized. Please maintain using your inhalers and nebulizer. Bladder infection should clear up. He will need to have your INR checked preferably next week while taking antibiotics and prednisone *Continue to take medications as directed --> SENT TO [facility] Keflex 500 mg twice a day for 7 days Prednisone 40 mg for 3 days, 30 mg days, 20 mg for 3 days, 10 mg for 3 days--> take this in the morning *Follow up with your primary care provider in 2-3 days or call [phone] *Return to ER if you should have increasing shortness of breath fever cough pain or any new, worsening or concerning symptoms Prescriptions: New prednisone 10 mg tablet 10 mg PO DAILY Qty: 30 0RF Rx Instructions: day 1-3: 40 mg once a day day 4-6: 30 mg once a day day 7-9: 20 mg once a day day 10-12: 10 mg once a day cephalexin 500 mg capsule 500 mg PO BID 7 Days Qty: 14 0RF No Action albuterol sulfate [Ventolin HFA] 90 MCG/PUFF HFA aerosol inhaler 2 puff INH Q4HP PRN (Reason: SOB) Qty: 0 multivitamin [Multiple Vitamins] 1 EACH tablet 1 tab PO QDAY Qty: 0 lisinopril 20 MG tablet 20 mg PO QDAY Qty: 0 hydrochlorothiazide 25 MG tablet 12.5 mg PO QDAY Qty: 0 omeprazole 20 mg Capsule,Delayed Release(Dr/Ec) 20 mg PO DAILY PRN (Reason: Acid Reflux) bupropion HCl 150 mg Tablet Extended Release 24 Hr 150 mg PO QAM albuterol sulfate 2.5 MG/3 ML solution for nebulization 3 ml INH Q4HP PRN (Reason: SOB) warfarin 2 MG tablet 5 mg PO QDAY Rx Instructions: MW 1.5 tabs, T//F/S/S 1 tab Referrals: Porfirio Valdes MD [Primary Care Provider] - Stand Alone Forms: Patient Portal/API
[2022-06-09] MEDS: cephALEXin 250 MG PREPACK 1 BOTTLE MISC (23:15)
[2022-06-09] MEDS: LORazepam 0.5 MG TABLET PO (23:31)
== END 2022-06-09 23:43 | disposition home or self-care (01) ==
PROVIDERS: Emergency Provider Emergency Medicine; PCP Internal Medicine
DX: J44.1 Chronic obstructive pulmonary disease with (acute) exacerbation (principal); N39.0 Urinary tract infection, site not specified; Z95.0 Presence of cardiac pacemaker; Z79.01 Long term (current) use of anticoagulants; Z20.822 Contact with and (suspected) exposure to COVID-19
CPT/HCPCS: 36415; 71045; 80053; 81003; 81015; 83605; 83690; 83880; 84145; 85025; 85379; 85610; 85730; 87040; 87077; 87086; 87186; 87633; 93005; 94640; 96374; 99284; 99285; J2930; J7613

== ENCOUNTER 2022-06-22 10:15 | Outpatient (RCR) | payer OTHER, SELFPAY ==
[2020-12-11 00:07] VITALS: BMI 18.8
== END 2022-06-22 12:15 ==
LOC: PUL 10:15
PROVIDERS: PCP Internal Medicine; Referring Provider Specialist; Visit Provider Specialist
DX: J43.2 Centrilobular emphysema (principal)
CPT/HCPCS: G0237; G0238

== ENCOUNTER 2022-06-22 11:03 | Emergency (ER) | payer OTHER, SELFPAY ==
[2020-12-11 00:07] VITALS: BMI 18.8
[2022-06-22] VITALS (10 sets, daily range): BP systolic 137–171; BP diastolic 58–74; PULSE 60–79; RESP 20–24; TEMP 36.2; O2SAT 92–98; BMI 20.7
--- NOTE | 2022-06-22 11:53 | DI.RAD.S_ITS ---
PROCEDURE: XR CHEST 1V INDICATIONS: chest pain TECHNIQUE: One view of the chest was acquired. COMPARISON: [facility], CT, CT LOW DOSE LUNG CA SCREENING, 09/11/2021, 10:19. [facility], CR, XR CHEST 1V, 06/09/2022, 19:14. FINDINGS: Surgical changes and devices: Pacemaker Lungs and pleura: Lungs are clear. No pleural effusions or pneumothorax. Mediastinum: Mediastinal contours appear normal. Heart size is normal. Bones and chest wall: No suspicious bony lesions. Overlying soft tissues appear unremarkable. IMPRESSION: No evidence acute pulmonary process. Dictated by: Omid Alcazar M.D. on 06/22/2022 at 12:21 Approved by: Omid Alcazar M.D. on 06/22/2022 at 12:22
[2022-06-22 12:15] LABS: Add Manual Diff / Slide Review NO; Basophils Absolute Auto 100 /uL (0-100); Eosinophils Absolute Auto 200 /uL (0-450); Hematocrit 42.2 % (41-53); Hemoglobin 14.1 g/dL (13.5-17.5); Lymphocytes Absolute Auto 1400 /uL (1100-4500); Lymphocytes Percent Auto 15.2 % (25-40); Mean Corpuscular HGB Conc 33.3 % (30-36); Mean Corpuscular Hemoglobin 32.2 PG (26-34); Mean Corpuscular Volume 96.8 fL (80-100); Monocytes Absolute Auto 800 /uL (0-900); Monocytes Percent Auto 9.1 % (3-14); Neutrophils Absolute Auto 6600 /uL (1500-7000); Neutrophils Percent Auto 72.7 % (50-75); Platelet Count 278 X10^3/uL (150-400); Red Blood Cell Count 4.36 X10^6/uL (4.5-5.9); Red Cell Distribution Width 13.8 % (11.6-14.8)
[2022-06-22 12:27] LABS: INR 4.2 (0.9-1.3); Prothrombin Time 48.6 SECONDS (10.1-12.7)
[2022-06-22 12:29] LABS: PTT Partial Thromboplastin Tim 46 SECONDS (26-36)
[2022-06-22 12:36] LABS: Alanine Aminotransferase 43 IU/L (<50); Albumin 4.1 g/dL (3.5-5.0); Albumin Globulin Ratio 1.6 (1.0-2.8); Alkaline Phosphatase 51 U/L (38-126); Aspartate Aminotransferase 41 IU/L (17-59); BUN Creatinine Ratio 24.4 (6-22); Bilirubin Total 0.6 mg/dL (0.2-1.3); Blood Urea Nitrogen 30 mg/dL (9-20); Calcium 9.4 mg/dL (8.4-10.2); Carbon Dioxide 32 mmol/L (22-32); Chloride 100 mmol/L (98-107); Creatine Kinase 80 U/L (55-170); Estimated Glomerular Filt Rate > 60 mL/min (>60); Globulin 2.6 g/dL (1.7-4.1); Glucose 88 mg/dL (80-110); HEMOLYSIS < 15 (0-50); Lipase 118 U/L (23-300); Magnesium 1.7 mg/dL (1.6-2.3); Potassium 4.4 mmol/L (3.4-5.1); Sodium 138 mmol/L (137-145); Total Protein 6.7 g/dL (6.3-8.2)
[2022-06-22 12:47] LABS: Troponin I 0.013 ng/mL (0.01-0.034)
--- NOTE | 2022-06-22 16:06 | DI.CT.S_ITS ---
PROCEDURE: CT ANGIO CHEST PE PROTOCOL INDICATIONS: dyspnea TECHNIQUE: After the administration of intravenous contrast, 2 mm thick sections acquired from the pulmonary apices to the posterior costophrenic angles. 3-dimensional maximum intensity projection (MIP) coronal and sagittal reformats were then acquired through the thorax. For radiation dose reduction, the following was used: automated exposure control, adjustment of mA and/or kV according to patient size. COMPARISON: [facility], CT, CT ANGIO CHEST PE PROTOCOL, 12/10/2020, 19:58. FINDINGS: Image quality: Excellent. Pulmonary arteries: Pulmonary arteries are normal in size, and demonstrate no intraluminal filling defects to suggest central pulmonary embolism. Lungs and pleura: Moderate centrilobular emphysema and peribronchial thickening. Bibasilar atelectasis. Calcified granuloma. Mediastinum: Moderate coronary artery calcifications for age. Cardiomegaly. Bones and chest wall: No suspicious bony lesions. Ribs and thoracic spine appear intact throughout. Thyroid gland is unremarkable.. No axillary or supraclavicular adenopathy. Abdomen: Stable bilateral adrenal nodules compared with 2018, statistically benign. Bilateral renal cystic lesions. IMPRESSION: No pulmonary embolism. Dictated by: Severiano Cisse M.D. on 06/22/2022 at 16:38 Approved by: Severiano Cisse M.D. on 06/22/2022 at 16:43
--- NOTE | 2022-06-22 16:07 | ED.SOB ---
HPI - SOB/Dyspnea General Chief Complaint: Shortness of Breath/Dyspnea Stated Complaint: sent by Cardiopulminary SOB while exercising Time Seen by Provider: 06/22/22 15:25 History of Present Illness HPI Narrative: Patient is sent here from cardiopulmonary rehabilitation services, patient was doing his usual exercises, he was 15 minutes into his 20 minute regimen, he feels short of breath without any chest pain. Staff noted he was cyanotic. Patient states he was not any pain. Do not feel the same as his COPD exacerbation. Patient just thinning steroid pack after being seen here June 09, 2022 for COPD exacerbation and discharged from the emergency department. Patient no longer smokes. Does not require supplemental oxygen at home or here. Again, denies any chest pain. Patient is on warfarin for pulmonary embolism history. Patient does have a pacemaker. Denies any recent illness. Patient had pacemaker placed at 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, there was concern for developing third-degree heart block Related Data Home Medications Medication Instructions Recorded Confirmed albuterol sulfate 90 mcg/actuation 2 puff INH Q4HP PRN SOB #0 ea 01/26/16 12/11/20 aerosol inhaler (Ventolin HFA) lisinopril 20 mg tablet 20 mg PO QDAY ##0 01/26/16 12/11/20 multivitamin (Multiple Vitamins 1 tab PO QDAY #0 tabs 01/26/16 12/11/20 tablet) hydrochlorothiazide 25 mg tablet 12.5 mg PO QDAY ##0 06/29/17 12/11/20 albuterol sulfate 2.5 mg/3 mL 3 ml INH Q4HP PRN SOB 12/11/20 12/11/20 (0.083 %) solution for nebulization bupropion HCl 150 mg 24 hr tablet, 150 mg PO QAM 12/11/20 12/11/20 extended release omeprazole 20 mg capsule,delayed 20 mg PO DAILY PRN Acid Reflux 12/11/20 12/11/20 release warfarin 2 mg tablet 5 mg PO QDAY 12/11/20 12/11/20 Previous Rx's Medication Instructions Recorded prednisone 10 mg tablet 10 mg PO DAILY #30 tabs 06/09/22 Allergies Allergy/AdvReac Type Severity Reaction Status Date / Time No Known Drug Allergies Allergy Verified 06/09/22 19:09 Review of Systems Review of Systems Narrative: GENERAL: negative chills, fatigue, malaise, fever, sweats. HEENT: negative sinus pain, ear pain, sore throat RESPIRATORY: Positive dyspnea, negative cough CARDIOVASCULAR: negative chest pain, palpitations GASTROINTESTINAL: negative nausea, vomiting, abdominal pain : negative dysuria, frequency, hematuria MUSCULOSKELETAL: negative muscle or bony pain SKIN: negative rash, skin lesions NEUROLOGIC: negative weakness, numbness ROS Unobtainable: All systems reviewed & are unremarkable except as noted in HPI and below Patient History Medical History Anticoagulated on warfarin COPD (chronic obstructive pulmonary disease) Essential hypertension Hx pulmonary embolism Hyperlipemia Pulmonary embolism Surgical History History of partial surgical removal of colon Hx of inguinal hernia repair Family History Mother Lung cancer Father Brain cancer Social History household members: spouse Smoking Status: Former smoker Tobacco: How many years used: 3 alcohol intake: former Smoking Status: Former smoker alcohol intake frequency: holidays/special occasions only Substance Use Type: does not use Exam Narrative Exam Narrative: GENERAL: in no distress, not toxic not dyspneic HEAD: Normocephalic. EYES: Pupils equal round ENT: Mucous membranes moist. NECK: Trachea midline. CARDIOVASCULAR: Regular rate and rhythm without murmurs RESPIRATORY: Clear to auscultation. Breath sounds equal bilaterally. No wheezes, rales, or rhonchi. Speaking full sentences. No respiratory distress GASTROINTESTINAL: Abdomen soft, non-tender EXTREMITIES: No gross deformities. BACK: No flank tenderness. NEURO: AOx4. SKIN: Warm and dry, patient's skin color is pink, not cyanotic. PSYCH: Not anxious, is cooperative Initial Vital Signs Initial Vital Signs: Vital Signs Temperature 97.2 F L 06/22/22 11:46 Pulse Rate 64 06/22/22 11:46 Respiratory Rate 20 06/22/22 11:46 Blood Pressure 140/74 06/22/22 11:46 Pulse Oximetry 96 06/22/22 11:46 Oxygen Delivery Method 06/22/22 11:46 Course Orders Ordered: Discontinued Medications Sodium Chloride (Normal Saline 0.9%) 500 mls @ 1,000 mls/hr IV BOLUS ONE Stop: 06/22/22 16:35 Last Infusion: 06/22/22 17:07 Dose: 0 mls/hr Documented By: Admin: 06/22/22 16:34 Dose: 1,000 mls/hr Documented By: CARLOS Vital Signs Vital signs: Vital Signs - 8 hr 06/22/22 11:46 06/22/22 15:05 06/22/22 15:05 Temperature 97.2 F L Pulse Rate 64 79 Respiratory Rate 20 Blood Pressure 140/74 137/66 Pulse Oximetry 96 93 Oxygen Delivery Method Room Air 06/22/22 15:30 Temperature Pulse Rate 60 Respiratory Rate 24 Blood Pressure Pulse Oximetry 97 Oxygen Delivery Method Room Air MDM - SOB/Dyspnea Lab Data 06/22/22 12:02 06/22/22 12:02 Labs: Lab Results 06/22/22 06/22/22 06/22/22 Range/Units 12:02 12:02 12:02 WBC 9.0 (4.5-11.0) X10^3/uL RBC 4.36 L (4.5-5.9) X10^6/uL Hgb 14.1 (13.5-17.5) g/dL Hct 42.2 (41-53) % MCV 96.8 (80-100) fL MCH 32.2 (26-34) PG MCHC 33.3 (30-36) % RDW 13.8 (11.6-14.8) % Plt Count 278 (150-400) X10^3/uL Neut % (Auto) 72.7 (50-75) % Lymph % (Auto) 15.2 L (25-40) % Scurry % (Auto) 9.1 (3-14) % Eos % (Auto) 2.0 (2-4) % Baso % (Auto) 1.0 (0-2) % Neut # (Auto) 6600 (8393-7654) /uL Lymph # (Auto) 1400 (5294-8209) /uL Scurry # (Auto) 800 (0-900) /uL Eos # (Auto) 200 (0-450) /uL Baso # (Auto) 100 (0-100) /uL PT 48.6 H (10.1-12.7) SECONDS INR 4.2 H (0.9-1.3) APTT 46 H (26-36) SECONDS Sodium 138 (137-145) mmol/L Potassium 4.4 (3.4-5.1) mmol/L Chloride 100 (98-107) mmol/L Carbon Dioxide 32 (22-32) mmol/L BUN 30 H (9-20) mg/dL Creatinine 1.23 (0.66-1.25) mg/dL Estimated GFR > 60 (>60) mL/min BUN/Creatinine Ratio 24.4 H (6-22) Glucose 88 (80-110) mg/dL Calcium 9.4 (8.4-10.2) mg/dL Magnesium 1.7 (1.6-2.3) mg/dL Total Bilirubin 0.6 (0.2-1.3) mg/dL AST 41 (17-59) IU/L ALT 43 (<50) IU/L Alkaline Phosphatase 51 (38-126) U/L Total Creatine Kinase 80 (55-170) U/L CK-MB (CK-2) TNP CK-MB (CK-2) Rel Index TNP Troponin I 0.013 (0.01-0.034) ng/mL Total Protein 6.7 (6.3-8.2) g/dL Albumin 4.1 (3.5-5.0) g/dL Globulin 2.6 (1.7-4.1) g/dL Albumin/Globulin Ratio 1.6 (1.0-2.8) Lipase 118 (23-300) U/L 06/22/22 Range/Units 16:21 WBC (4.5-11.0) X10^3/uL RBC (4.5-5.9) X10^6/uL Hgb (13.5-17.5) g/dL Hct (41-53) % MCV (80-100) fL MCH (26-34) PG MCHC (30-36) % RDW (11.6-14.8) % Plt Count (150-400) X10^3/uL Neut % (Auto) (50-75) % Lymph % (Auto) (25-40) % Scurry % (Auto) (3-14) % Eos % (Auto) (2-4) % Baso % (Auto) (0-2) % Neut # (Auto) (7144-4075) /uL Lymph # (Auto) (7268-1981) /uL Scurry # (Auto) (0-900) /uL Eos # (Auto) (0-450) /uL Baso # (Auto) (0-100) /uL PT (10.1-12.7) SECONDS INR (0.9-1.3) APTT (26-36) SECONDS Sodium (137-145) mmol/L Potassium (3.4-5.1) mmol/L Chloride (98-107) mmol/L Carbon Dioxide (22-32) mmol/L BUN (9-20) mg/dL Creatinine (0.66-1.25) mg/dL Estimated GFR (>60) mL/min BUN/Creatinine Ratio (6-22) Glucose (80-110) mg/dL Calcium (8.4-10.2) mg/dL Magnesium (1.6-2.3) mg/dL Total Bilirubin (0.2-1.3) mg/dL AST (17-59) IU/L ALT (<50) IU/L Alkaline Phosphatase (38-126) U/L Total Creatine Kinase 66 (55-170) U/L CK-MB (CK-2) TNP CK-MB (CK-2) Rel Index TNP Troponin I 0.017 (0.01-0.034) ng/mL Total Protein (6.3-8.2) g/dL Albumin (3.5-5.0) g/dL Globulin (1.7-4.1) g/dL Albumin/Globulin Ratio (1.0-2.8) Lipase (23-300) U/L Imaging Data Chest x-ray: Radiologist's Impression: [address] [address] XRay Report Signed Patient: Aly Moore MR#: [id number] : 1945 Acct:[id number] Age/Sex: 76 / M Date of Service: 06/22/22 Loc: ED Accession Number: [id number] ?? Procedure: XR chest 1V Ordering Provider: Adilson Wilkinson MD PROCEDURE:? XR CHEST 1V ? INDICATIONS:? chest pain ? TECHNIQUE:? One view of the chest was acquired.? ? COMPARISON:? [facility], CT, CT LOW DOSE LUNG CA SCREENING, 09/11/2021, 10:19. ?[facility], CR, XR CHEST 1V, 06/09/2022, 19:14. ? FINDINGS:? ? Surgical changes and devices:? Pacemaker ? Lungs and pleura:? Lungs are clear.? No pleural effusions or pneumothorax.? ? Mediastinum:? Mediastinal contours appear normal.? Heart size is normal.? ? Bones and chest wall:? No suspicious bony lesions.? Overlying soft tissues appear unremarkable.? ? IMPRESSION:? No evidence acute pulmonary process. ? ? Dictated by: Omid Alcazar M.D. on 06/22/2022 at 12:21 ? ? Approved by: Omid Alcazar M.D. on 06/22/2022 at 12:22 ? CT scan - chest: Radiologist's Impression: [place] [address] CT Scan Report Signed Patient: Aly Moore MR#: [id number] : 1945 Acct:[id number] Age/Sex: 76 / M Date of Service: 06/22/22 Loc: ED Accession Number: [id number] ?? Procedure: CT angio chest PE protocol Ordering Provider: Adilson Wilkinson MD PROCEDURE:? CT ANGIO CHEST PE PROTOCOL ? INDICATIONS:? dyspnea ? TECHNIQUE:? After the administration of intravenous contrast, 2 mm thick sections acquired from the pulmonary apices to the posterior costophrenic angles.? 3-dimensional maximum intensity projection (MIP) coronal and sagittal reformats were then acquired through the thorax.? For radiation dose reduction, the following was used:? automated exposure control, adjustment of mA and/or kV according to patient size.? ? COMPARISON:? [facility], CT, CT ANGIO CHEST PE PROTOCOL, 12/10/2020, 19:58. ? FINDINGS:? Image quality:? Excellent.? ? Pulmonary arteries:? Pulmonary arteries are normal in size, and demonstrate no intraluminal filling defects to suggest central pulmonary embolism.? ? Lungs and pleura:? Moderate centrilobular emphysema and peribronchial thickening.? Bibasilar atelectasis.? Calcified granuloma. ? Mediastinum:? Moderate coronary artery calcifications for age.? Cardiomegaly. ? Bones and chest wall:? No suspicious bony lesions.? Ribs and thoracic spine appear intact throughout.? Thyroid gland is unremarkable..? No axillary or supraclavicular adenopathy.? ? ? Abdomen:? Stable bilateral adrenal nodules compared with 2018, statistically benign.? Bilateral renal cystic lesions. ? IMPRESSION:? No pulmonary embolism. ? ? Dictated by: Severiano Cisse M.D. on 06/22/2022 at 16:38 ? ? Approved by: Severiano Cisse M.D. on 06/22/2022 at 16:43 ? [facility] Narrative Medical decision making narrative: Patient is sent here from cardiopulmonary rehabilitation services, patient was doing his usual exercises, he was 15 minutes into his 20 minute regimen, he feels short of breath without any chest pain. Staff noted he was cyanotic. Patient states he was not any pain. Do not feel the same as his COPD exacerbation. Patient just thinning steroid pack after being seen here June 09, 2022 for COPD exacerbation and discharged from the emergency department. Patient no longer smokes. Does not require supplemental oxygen at home or here. Again, denies any chest pain. Patient is on warfarin for pulmonary embolism history. Patient does have a pacemaker. Denies any recent illness. Patient had pacemaker placed at 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 [facility] CC: Dyspnea Complicating co-morbidities: History of COPD/heart block/pacemaker Data collected from: Patient Medical records reviewed: Patient seen here 2 weeks ago for COPD exacerbation, I did review ER visit notes Differential considered: Includes but not limited to pulmonary embolism/COPD exacerbation/non-STEMI/STEMI/pneumonia/arrhythmia Exam documented above, pertinent findings include: Clear and equal lung sounds Lab Test results independently reviewed as above. Pertinent findings: Troponin and repeat troponin less than 0.012, hemoglobin 14 hematocrit 42 INR 4.2 sodium 138 potassium 4.4, pacemaker interrogation reassuring. No adverse events Independently reviewed EKG as above AV dual paced rhythm with frequent atrial paced complexes. Imaging studies independently reviewed: Chest x-ray no acute process, CT chest PE protocol no acute process no PE Consultations: 6:00 p.m.. Spoke with [place] medical office technician about interrogation, there were no events today/no arrhythmia. No adverse device events. 6:30 p.m.. Spoke with cardiology dr yang, patient has seen Dr. tellez, 4 months ago. Patient can be discharged home and follow up with primary care or their office before resuming rehab. Treatments: Normal saline Re-evaluations: 6:30 p.m.. Reviewed results with patient. Asymptomatic at this time. He does recall his nitroglycerin neutralizer name, Dr. Tellez, agrees with treatment plan, return precautions reviewed with him. Discussion: Appropriate for discharge home. At this time event of dyspnea uncertain source however likely not cardiac. No PE. Exam and laboratory results and imaging interrogation EKG are reassuring. I did review with nitroglycerin neutralizer as well for follow-up. Agrees with treatment plan and follow up with primary care and cardiology office before resuming rehab Diagnosis: Dyspnea Discharge Plan Departure Patient Disposition: Home Clinical Impression: Dyspnea Instructions: DI for Shortness of Breath Activity Restrictions/Additional Instructions: Please resume your home medications. Please call provided cardiology office for office re-evaluation of today's events. At this time blood work and imaging and EKG are reassuring. Interrogation of your pacemaker is reassuring as well. Do not resume your rehabilitation treatments until seen by a provider for re-evaluation, see your family doctor 1st as well. Prescriptions: No Action albuterol sulfate [Ventolin HFA] 90 MCG/PUFF HFA aerosol inhaler 2 puff INH Q4HP PRN (Reason: SOB) Qty: 0 multivitamin [Multiple Vitamins] 1 EACH tablet 1 tab PO QDAY Qty: 0 lisinopril 20 MG tablet 20 mg PO QDAY Qty: 0 hydrochlorothiazide 25 MG tablet 12.5 mg PO QDAY Qty: 0 omeprazole 20 mg Capsule,Delayed Release(Dr/Ec) 20 mg PO DAILY PRN (Reason: Acid Reflux) bupropion HCl 150 mg Tablet Extended Release 24 Hr 150 mg PO QAM albuterol sulfate 2.5 MG/3 ML solution for nebulization 3 ml INH Q4HP PRN (Reason: SOB) warfarin 2 MG tablet 5 mg PO QDAY Rx Instructions: MW 1.5 tabs, T/TH/F/S/S 1 tab prednisone 10 mg tablet 10 mg PO DAILY Qty: 30 0RF Rx Instructions: day 1-3: 40 mg once a day day 4-6: 30 mg once a day day 7-9: 20 mg once a day day 10-12: 10 mg once a day Referrals: Julianne Stevenson PA-C [Primary Care Provider] - Stand Alone Forms: Patient Portal/API
[2022-06-22] MEDS: SODIUM CHLORIDE 0.9% 500 ML 1000 ML IV (16:34)
[2022-06-22 17:01] LABS: Creatine Kinase 66 U/L (55-170)
[2022-06-22 17:14] LABS: Troponin I 0.017 ng/mL (0.01-0.034)
== END 2022-06-22 18:35 | disposition home or self-care (01) ==
PROVIDERS: Emergency Provider Emergency Medicine; PCP Physician Assistant
DX: R06.00 Dyspnea, unspecified (principal); R07.9 Chest pain, unspecified; Z95.0 Presence of cardiac pacemaker
CPT/HCPCS: 36415; 71045; 71275; 80053; 82550; 83690; 83735; 84484; 85025; 85610; 85730; 93005; 93010; 99284; Q9967